=== PATIENT | female | born 1935 | race Caucasian/White ===

== ENCOUNTER → 2018-02-23 | Outpatient (CLI) | payer MEDICARE, BC ==
--- NOTE | 2018-02-25 23:03 | CT ---
EXAMINATION TYPE: CT angio abdomen DATE OF EXAM: 02/23/2018 HISTORY: upper abdominal pain and tenderness. CT DLP: 1776mGycm Automated Exposure Control for Dose Reduction was Utilized. CONTRAST: CTA scan of the abdomen is performed without oral and without and with IV Contrast, patient injected with 100mL mL of Isovue 370. Three-D reconstructed images are created on a independent workstation an d reviewed. COMPARISON: CT abdomen and pelvis October 08, 2011. FINDINGS: VASCULAR: There is [id number] calcified plaque along course of the aorta. Patent celiac axis, S MA, bilateral single renal arteries, and ADONIS without significant stenosis. There is mild to moderate calcified plaque in bilateral common iliac arteries without significant stenosis. Similar plaque exte nds into proximal internal iliac arteries. No significant plaque in the external iliac arteries. Mild calcified plaque left common femoral artery. LUNG BASES: No significant abnormality is appreciated. LIVER/GB: Cholecystectomy clips are redemonstrated. PANCREAS: Mild fat replaced atrophy at level of pancreatic head is redemonstrated. SPLEEN: No significant abnormality is seen. ADRENALS: No significant abnormality is seen. KIDNEYS: No significant abnormality is seen. BOWEL: Some diverticula are seen in visualized sigmoid colon. LYMPH NODES: No greater than 1cm abdominal lymph nodes nodes are appreciated. OSSEOUS STRUCTURES: Moderate to severe multilevel spurring of the thoracolumbar spine. Moderate to se charbel multilevel disc space narrowing with vacuum disc phenomenon at L2-L3 through the L5-S1 levels. M ultilevel facet arthropathy and disc herniations contribute to multilevel spinal canal stenosis worse L4-L5 level on axial image 51. OTHER: No significant additional abnormality is seen. IMPRESSION: No aneurysm is evident. No significant arterial stenosis identified. No new or acute find ing identified to account for patient's symptoms of upper abdominal pain and tenderness.
== END | disposition home or self-care (01) ==
LOC: RADCTMAIN 15:52
PROVIDERS: ATTEND Family Medicine
DX: R10.84 Generalized abdominal pain (principal); R10.819 Abdominal tenderness, unspecified site; Z88.2 Allergy status to sulfonamides; Z88.5 Allergy status to narcotic agent
CPT/HCPCS: 74175

== ENCOUNTER 2018-06-13 08:02 | Day surgery (SDC) | payer MEDICARE, BC ==
[2018-06-11 15:37] VITALS: BMI 34.6
[~2018-06-13 08:02] MED LIST: LACTATED RINGERS 1,000 ML IV SCH; LIDOCAINE 1% 20 ML VIAL (10MG/ML) FOR IV START INTRADERMA PRN
[2018-06-13 08:32] VITALS: TEMP 97.7
[2018-06-13] MEDS ORDERED: PROPOFOL 10 MG/ML 20 ML VIAL IV ONE (08:52)
[2018-06-13] MEDS ORDERED: LIDOCAINE 1% INJ 10MG/ML (20 ML MDV) ONE (08:52)
[2018-06-13] MEDS ORDERED: GLYCOPYRROLATE 0.2 MG/ML 2 ML VIAL ONE (08:52)
[2018-06-13 09:16] VITALS: RESP 18
[2018-06-13 09:31] VITALS: BP 100/64; PULSE 72
--- NOTE | 2018-06-13 09:35 | P.PCN ---
Date of Procedure: 06/13/18 Procedure(s) Performed: BRIEF HISTORY: Patient is a 82-year-old, pleasant, white female, scheduled for an upper endoscopy as a part of evaluation of severe epigastric burning pain for the last 6 months duration. She lost 20 pounds since onset of the symptoms. She was recently started on Prilosec 20 mg daily and symptoms are gradually improving.. PROCEDURE PERFORMED: Esophagogastroduodenoscopy with biopsy. PREOPERATIVE DIAGNOSIS: Epigastric burning pain of 6 months duration. IV sedation per anesthesia. PROCEDURE: After informed consent was obtained, the patient was brought into the endoscopy unit. IV sedation was administered by Anesthesia under continuous monitoring. Initially the Olympus GIF-140 video endoscope was inserted into the mouth. Esophagus intubated without any difficulty. It was gradually advanced into the stomach and duodenum and carefully examined. The bulb and the second part of the duodenum appeared normal. The scope at this time was withdrawn to the stomach, adequately insufflated with air, and upon careful examination, mucosa of the antrum, had mild gastritis and biopsies were done from this area. The body, cardia and the fundus appeared normal. The scope was then withdrawn into the esophagus. Small sliding Hiatal hernia noted. The GE junction was located at 39 cm from the incisors. The esophagus appeared normal. There were no erosions or ulcerations seen, biopsies were done from the distal esophagus and the patient tolerated the procedure well. IMPRESSION: 1. Small hiatal hernia. 2. Antral gastritis. RECOMMENDATIONS: The findings of this examination were discussed with the patient as well as a family. She was advised to follow with the biopsy results. She will continue with Prilosec 20 mg daily and follow antireflux measures..
== END 2018-06-13 09:57 | disposition home or self-care (01) ==
LOC: ORWHC2ENDO 08:02
PROVIDERS: ATTEND Internal Medicine Gastroenterology
DX: K29.50 Unspecified chronic gastritis without bleeding (principal); K29.60 Other gastritis without bleeding; K44.9 Diaphragmatic hernia without obstruction or gangrene; Z79.899 Other long term (current) drug therapy
CPT/HCPCS: 88305; 43239; J2001; J2704

== ENCOUNTER → 2020-07-24 | Outpatient (CLI) | payer MEDICARE, BC ==
--- NOTE | 2020-07-25 16:08 | ECHOF ---
Referral Reason:I25.84 Coronary atherosclerosis MEASUREMENTS -------- HEIGHT: 165.1 cm WEIGHT: 97.1 kg BP: RVIDd: 3.8 cm (< 3.3) IVSd: 1.3 cm (0.6 - 1.1) LVIDd: 4.1 cm (3.9 - 5.3) LVPWd: 1.5 cm (0.6 - 1.1) IVSs: 1.7 cm LVIDs: 2.8 cm LVPWs: 1.7 cm LAESV Index (A-L): 28.96 ml/m Ao Diam: 2.8 cm (2.0 - 3.7) AV Cusp: 1.4 cm (1.5 - 2.6) LA Diam: 3.8 cm (2.7 - 3.8) MV EXCURSION: 23.948 mm (> 18.000) MV EF SLOPE: 136 mm/s (70 - 150) EPSS: 1.4 cm MV E Varun: 1.01 m/s MV DecT: 179 ms MV A Varun: 1.17 m/s MV E/A Ratio: 0.87 AV maxP.67 mmHg AV meanP.05 mmHg AR PHT: 490 ms RAP: 5.00 mmHg RVSP: 30.18 mmHg FINDINGS -------- Sinus rhythm. This was a technically adequate study. The left ventricular size is normal. There is mild concentric left ventricular hypertrophy. Overa ll left ventricular systolic function is normal with, an EF between 55 - 60 %. The diastolic fillin g pattern is normal for the age of the patient 15.35. The right ventricle is mild to moderately enlarged. Normal LA size by volume 22+/-6 ml/m2. The right atrial size is normal. Interatrial and interventricular septum intact. Trace amount of aortic regurgitation. There is mild aortic stenosis present. Peak/mean gradient across the Aortic Valve is 20.67mmHg / 12.05mmHg. Mild mitral regurgitation is present. Mild tricuspid regurgitation present. There is borderline pulmonary hypertension. The right ventr icular systolic pressure, as measured by Doppler, is 30.18mmHg. There is no pulmonic regurgitation present. The aortic root size is normal. Normal inferior vena cava with normal inspiratory collapse consistent with estimated right atrial pre ssure of 5 mmHg. There is no pericardial effusion. CONCLUSIONS -------- 1. The left ventricular size is normal. 2. There is mild concentric left ventricular hypertrophy. 3. Overall left ventricular systolic function is normal with, an EF between 55 - 60 %. 4. The diastolic filling pattern is normal for the age of the patient 15.35 5. The right ventricle is mild to moderately enlarged. 6. Trace amount of aortic regurgitation. 7. There is mild aortic stenosis present. 8. Peak/mean gradient across the Aortic Valve is 20.67mmHg / 12.05mmHg. 9. Mild mitral regurgitation is present. 10. Mild tricuspid regurgitation present. 11. There is borderline pulmonary hypertension. 12. The right ventricular systolic pressure, as measured by Doppler, is 30.18mmHg. TYPEWRITER ASSEMBLER: Alejandra Stoner RDCS
== END | disposition home or self-care (01) ==
LOC: RADECHMAIN 13:38
PROVIDERS: ATTEND Internal Medicine Critical Care Medicine
DX: I27.20 Pulmonary hypertension, unspecified (principal); I08.3 Combined rheumatic disorders of mitral, aortic and tricuspid valves
CPT/HCPCS: 93306

== ENCOUNTER → 2020-09-30 | Outpatient (CLI) | payer MEDICARE, BC | END | disposition home or self-care (01) | LOC: LABWHC1 11:43 | PROVIDERS: ATTEND Surgery | DX: Z20.822 Contact with and (suspected) exposure to COVID-19 (principal) ==

== ENCOUNTER 2020-10-07 11:09 | Inpatient (IN) | payer MEDICARE, BC ==
[2020-10-01 15:04] VITALS: BMI 35.1
[~2020-10-07 11:09] MED LIST changes: +HYDROmorphone 0.5 MG/0.5 ML SYRINGE IVP PRN; -LACTATED RINGERS 1,000 ML IV SCH; -LIDOCAINE 1% 20 ML VIAL (10MG/ML) FOR IV START INTRADERMA PRN; +ONDANSETRON 4 MG/2 ML VIAL IVP ONE; +fentaNYL (PF) 50 MCG/ML 2 ML AMP IV PRN; +metroNIDAZOLE-NS PMX 500 MG in SALINE 1 100ML.BAG IVPB PRN
[2020-10-07] MEDS ORDERED: LIDOCAINE 1% (10MG/ML) FOR IV START INTRADERMA ONE (12:17)
[2020-10-07] MEDS: LACTATED RINGERS 1,000 ML IV SCH ×2 (12:17→20:54)
[2020-10-07] MEDS ORDERED: ONDANSETRON 4 MG/2 ML VIAL ONE (12:26)
[2020-10-07] MEDS ORDERED: HEPARIN SODIUM,PORCINE 5,000 UNIT/ML 1 ML VIAL SQ PRN (12:29)
[2020-10-07] MEDS ORDERED: DEXAMETHASONE SOD PHOSPHATE 4 MG/ML 1 ML VIAL IV ONE (12:30)
[2020-10-07] MEDS ORDERED: fentaNYL (PF) 50 MCG/ML 2 ML AMP ONE (12:54)
[2020-10-07] MEDS ORDERED: LIDOCAINE 1% INJ 10MG/ML (20 ML MDV) ONE (12:54)
[2020-10-07] MEDS ORDERED: SUCCINYLCHOLINE CHLORIDE 100 MG/5 ML SYR IV ONE (12:54)
[2020-10-07] MEDS ORDERED: ROCURONIUM 10 MG/ML (5 ML VIAL) IV ONE (12:54)
[2020-10-07] MEDS ORDERED: NEOSTIGMINE 1 MG/ML 10 ML VIAL ONE (12:54)
[2020-10-07] MEDS ORDERED: HYDROmorphone (PF) 1 MG/ML ONE (12:54)
[2020-10-07] MEDS ORDERED: GLYCOPYRROLATE 0.2 MG/ML 2 ML VIAL ONE (12:54)
[2020-10-07] MEDS ORDERED: PROPOFOL 10 MG/ML 20 ML VIAL IV ONE (12:54)
[2020-10-07] MEDS ORDERED: BUPIVACAINE (PF) 0.25% 30 ML VIAL SQ ONE ×3 (13:21)
[2020-10-07] MEDS ORDERED: LIDOCAINE 1%-EPI 1:100,000 20 ML VIAL SQ ONE ×2 (13:21)
[2020-10-07] MEDS ORDERED: LACTATED RINGERS 1,000 ML IV ONE ×3 (14:21→18:27)
[2020-10-07] MEDS ORDERED: NALOXONE 0.4 MG/ML 1 ML VIAL IV PRN (15:31)
[2020-10-07] MEDS ORDERED: ONDANSETRON 4 MG/2 ML VIAL IVP PRN (15:31)
[2020-10-07] MEDS ORDERED: HYDROmorphone 0.5 MG/0.5 ML SYRINGE IVP PRN (15:31)
[2020-10-07] MEDS ORDERED: ACETAMINOPHEN TAB 325 MG TAB PO PRN (15:38)
--- NOTE | 2020-10-07 15:45 | P.OP ---
Date of Procedure: 10/07/20 Preoperative Diagnosis: Colon cancer, blood loss anemia Postoperative Diagnosis: Colon cancer, blood loss anemia Procedure(s) Performed: Robotic assisted right hemicolectomy Anesthesia: JANICE Surgeon: Emerita Strickland Estimated Blood Loss (ml): 75 Pathology: other (Right colon) Condition: stable Disposition: PACU Indications for Procedure: The patient is an 84-year-old female who had had EGD and colonoscopy done due to severe iron deficiency anemia. Findings showed a large tumor in the right colon and she presents for surgery Description of Procedure: Patient's taken the operative suite where she is prepped and draped in the usual sterile manner under general endotracheal anesthetic. An optical trocar is then placed in the left midabdomen. Pneumoperitoneum was established with CO2 gas. Sites are chosen for accessory trochars and these are placed through small skin incisions. There is an obvious tumor noted in the right colon opposite the ileocecal valve. Otherwise the liver, diaphragm, large and small bowel were normal where they were seen. The robot is docked. The terminal ileum is mobilized near the right lateral peritoneal reflection. This is continued up along the paracolic gutter to the hepatic flexure. The right colon is mobilized medially. The patient is then placed in reverse Trendelenburg. The hepatic flexure and transverse colon are taken down. The omentum is dissected free off the transverse colon and reflected to the left abdomen. The terminal ileum and right colon are within brought towards the anterior abdominal wall and the mesentery was taken down with the vessel seal. The ileocolic vessels are divided with a stapling device. Dissection was carried up to the mesentery of the transverse colon. At that point there was good mobilization. Due to the large nature of the tumor, larger incision would need to made to remove the specimen, so decision was made to do an extracorporeal anastomosis. A small incision is made in the right abdomen. The anterior fascia was divided, the muscle was split. The posterior fascia and peritoneum were divided. The terminal ileum was brought up through the incision. It was divided with a NITA stapler. Was tagged with 0 Vicryl and dropped back into the abdominal cavity. The cecum was then brought up through the incision. The descending and proximal transverse colon were also brought up. Terminal ileum was brought up. The antimesenteric border of the terminal ileum was tacked to the transverse colon using 3-0 Vicryl. Small opening was made in each of the bowel and a NITA stapler was placed and fired. The enteric defect was closed with a stapler and the specimen was passed off. The anastomosis seemed to be a little small to finger palpation so it was revised. At that point there was a good anastomosis to finger palpation. Bowel was dropped back into the abdominal cavity. Gloves were changed. The posterior fascia and peritoneum were closed with 0 Vicryl. The muscle was allowed to fall back together. The anterior fascia was closed with 0 Vicryl. Trochars are removed. The skin was closed with ashish. Sterile dressings were applied. She tolerated the procedure without difficulty and was taken recovery room in satisfactory condition. According to or personnel, all counts are correct.
--- NOTE | 2020-10-07 15:58 | XR ---
EXAMINATION TYPE: XR abdomen 1V DATE OF EXAM: 10/07/2020 COMPARISON: None INDICATION: Instrument count TECHNIQUE: Single view abdomen supine view FINDINGS: Nonspecific bowel gas pattern is present. Some small bowel loops contain air within the left mid abdo men. Postsurgical change appears to be within the right mid abdomen.. Some faint linear densities lat eral to what appear to be bowel suture. Psoas margins are normal. No organomegaly is present. IMPRESSION: 1. Nonspecific abdomen. 2. No suspicious radiopaque foreign bodies identified. Correlate with the recent surgical history. So me nonspecific linear opacity may be lateral to the bowel suture material.
[2020-10-07] MEDS ORDERED: ACETAMINOPHEN IV (For NPO) 1,000 MG/100 ML VIAL IVPB ONE (16:08)
[2020-10-07] MEDS: D5-0.45% NACL WITH KCL 20MEQ/L 1,000 ML IV SCH (20:52)
[2020-10-07] MEDS: METOCLOPRAMIDE 5 MG/ML 2 ML VIAL IVP SCH (20:52)
[2020-10-07] MEDS: HEPARIN SODIUM,PORCINE 5,000 UNIT/ML 1 ML VIAL SQ SCH (20:53)
[2020-10-07] MEDS: atenoloL 25 MG TAB PO SCH (20:53)
[2020-10-08] MEDS: METOCLOPRAMIDE 5 MG/ML 2 ML VIAL IVP SCH ×5 (00:06→23:19)
[2020-10-08] MEDS: HYDROcodone/APAP 5-325MG 1 EACH TAB PO PRN ×3 (04:33→17:00)
[2020-10-08] MEDS: THYROID, PORK 30 MG TAB PO SCH (06:26)
[2020-10-08] MEDS: HEPARIN SODIUM,PORCINE 5,000 UNIT/ML 1 ML VIAL SQ SCH (08:24)
[2020-10-08] MEDS: CHOLECALCIFEROL 25 MCG (1000 IU) TABLET PO SCH (08:25)
[2020-10-08] MEDS: MAGNESIUM OXIDE 400 MG TAB PO SCH (08:25)
[2020-10-08] MEDS: ISOSORBIDE MONONITRATE ER 30 MG TAB.ER.24H PO SCH (08:25)
[2020-10-08] MEDS: FERROUS SULFATE 325 MG TAB PO SCH (08:25)
[2020-10-08] MEDS: LOSARTAN-HCTZ 50-12.5 MG 1 EACH TAB PO SCH (08:28)
[2020-10-08] MEDS: PANTOPRAZOLE 40 MG/10 ML VIAL IV SCH (08:28)
[2020-10-08] MEDS: D5-0.45% NACL WITH KCL 20MEQ/L 1,000 ML IV SCH ×2 (08:28→20:05)
[2020-10-08] MEDS: atenoloL 25 MG TAB PO SCH ×2 (08:28→20:05)
[2020-10-08] MEDS: HEPARIN SODIUM,PORCINE/PF 5,000 UNIT/0.5 ML SYRINGE SQ SCH ×2 (08:30→20:05)
[2020-10-08] MEDS ORDERED: NON FORMULARY DRUG (Vitamin B Complex [Vitamin B Complex] 1 EACH Capsule) PO SCH (09:00)
[2020-10-08] MEDS ORDERED: POTASSIUM 100 MG PO SCH (09:00)
--- NOTE | 2020-10-08 09:46 | P.PN ---
Subjective Progress Note Date: 10/08/20 Principal diagnosis: S/P right hemicolectomy for colon cancer The patient is postop day 1 from a robotic assisted right hemicolectomy. She is having some expected incisional pain. Denies any nausea, vomiting or heartburn. Ate a small amount of breakfast. Objective - Vital Signs Vital signs: Vital Signs Temp 98.1 F 10/08/20 04:48 Pulse 78 10/08/20 04:48 Resp 16 10/08/20 04:48 BP 112/53 10/08/20 04:48 Pulse Ox 98 10/08/20 04:48 Intake & Output 10/07/20 10/08/20 10/08/20 18:59 06:59 18:59 Intake Total 2300 Output Total 135 Balance 2165 Weight 95.7 kg Intake: IV 2300 Output: Urine 60 Estimated Blood Loss 75 Other: Voiding Method Indwelling Catheter - Constitutional General appearance: Present: cooperative - Respiratory Respiratory: bilateral: CTA - Cardiovascular Rhythm: regular Abnormal Heart Sounds: Present: systolic murmur (2/) - Gastrointestinal General gastrointestinal: Present: decreased bowel sounds, soft Localized gastrointestinal: surgical scar: diffuse (dressings intact, clean and dry) Assessment and Plan (1) Colon cancer Current Visit: Yes Status: Acute Code(s): C18.9 - MALIGNANT NEOPLASM OF COLON, UNSPECIFIED SNOMED Code(s): 003891450 Plan: The patient clinically looks well. We will increase her activity and diet as tolerated. Use the incentive spirometry. She has DVT and ulcer prophylaxis. Internal medicine is consulted regarding her medical issues. Her blood pressure medication was held this morning. Progressing slowly
[2020-10-08 11:15] LABS: Basophils # (A) 0.03 X 10*3/uL (0.00-0.10); Basophils % (A) 0.2 %; Eosinophils # (A) 0.01 X 10*3/uL (0.04-0.35); Eosinophils % (A) 0.1 %; HCT 29.2 % (37.2-46.3); Lymphocytes # (A) 1.33 X 10*3/uL (0.90-5.00); Lymphocytes % (A) 10.9 %; MCH 26.9 pg (27.0-32.0); MCHC 30.8 g/dL (32.0-37.0); MCV 87.4 fL (80.0-97.0); Mean Platelet Volume 10.8 fL (9.5-12.2); Monocytes # (A) 0.71 X 10*3/uL (0.20-1.00); Monocytes % (A) 5.8 %; Neutrophils # (A) 10.07 X 10*3/uL (1.80-7.70); Neutrophils % (A) 82.5 %; Platelet Count 312 X 10*3/uL (140-440); RBC 3.34 X 10*6/uL (4.10-5.20); RDW 19.2 % (11.5-14.5); WBC 12.21 X 10*3/uL (4.50-10.00)
[2020-10-08 12:46] LABS: African American GFR (CKD) 33.9 (60.0-200.0); Anion Gap 9.6 mmol/L (4.00-12.00); BUN/Creat Ratio 14.38 Ratio (12.00-20.00); Calcium 8.9 mg/dL (8.7-10.3); Carbon Dioxide 24.4 mmol/L (21.6-31.8); Non-African American GFR(CKD) 29.3 (60.0-200.0); Potassium 4.4 mmol/L (3.5-5.5)
--- NOTE | 2020-10-08 13:08 | P.CONS ---
History of Present Illness - Reason for Consult Consult date: 10/08/20 Medical management - History of Present Illness HISTORY OF PRESENT ILLNESS This is an 84-year-old female patient of Dr. Barr and Dr. Scotty Costa with past medical history of hypertension hypertensive cardiovascular disease, hyperlipidemia, gastroesophageal reflux disease, hiatal hernia, hypothyroidism, chronic kidney disease, anemia of chronic kidney disease and colon cancer, degenerative disc disease of the cervical spine, granulomatous disease of the lungs. Patient has been brought in the hospital under the care of Dr. Strickland status post lap scopic robotic assisted right hemicolectomy. Patient is postop day #1. She states she is having abdominal pain. She is not passing gas. She denies nausea. She feels like she needs to urinate. She denies chest pain, no shortness of breath. She states she has had chest pain in the past that comes and goes and is treated with medications. She denies any dizziness or lightheadedness. Patient has been afebrile, heart rate 78, blood pressure 112/53, pulse ox 98% on room air. Blood work reveals the PVC 12.2, hemoglobin 9, platelet count 312. Electrolytes normal. BUN 23 and creatinine 1.6. Patient is on a low-fat and low fiber diet. REVIEW OF SYSTEMS Constitutional: No fever, no chills, no night sweats. No weight change. No weakness, fatigue or lethargy. No daytime sleepiness. EENT: No headache. No blurred vision or double vision, no loss of vision. No loss of Hearing, no ringing in the ears, no dizziness. No nasal drainage or congestion. No epistaxis. No sore throat. Lungs: No shortness of breath, cough, no sputum production. No wheezing. Cardiovascular: No chest pain, no lower extremity edema. No palpitations. No paroxysmal nocturnal dyspnea. No orthopnea. No lightheadedness or dizziness. No syncopal episodes. Abdominal: Reports abdominal pain. No nausea, vomiting. No diarrhea. No constipation. No bloody or tarry stools.. No loss of appetite. Genitourinary: No dysuria, increased frequency, urgency. No urinary retention. Musculoskeletal: No myalgias. No muscle weakness, no gait dysfunction, no frequent falls. No back pain. No neck pain. Integumentary: No wounds, no lesions. No rash or pruritus. No unusual bruising. No change in hair or nails. Neurologic: No aphasia. No facial droop. No change in mentation. No head injury. No headache. No paralysis. No paresthesia. Psychiatric: No depression. No anxiety. No mood swings. Endocrine: No abnormal blood sugars. No weight change. No excessive sweating or thirst. No cold intolerance. SOCIAL HISTORY Patient was a smoker of one pack per day for 19 years and quit in 1972. No alcohol use, illicit drug use. FAMILY HISTORY Mother recently in her 90s with no major medical problems. Father at age 36 from electrical accident at meal her breasts. Patient has 2 brothers and one has history of lung cancer and the second has no major medical problems. Patient has one sister with history of stroke. Patient has 2 sons and one was diagnosed with melanoma 39 years ago and stable. Second son has no major medical problems. PHYSICAL EXAMINATION Gen: This is an 84-year-old female. Patient is sitting up in recliner and appears to be comfortable and in no acute distress. HEENT: Head is atraumatic, normocephalic. Pupils equal, round. Sclerae is anicteric. NECK: Supple. No JVD. No lymphadenopathy. No thyromegaly. LUNGS: Clear to auscultation. No wheezes or rhonchi. No intercostal retractions. HEART: Regular rate and rhythm. Systolic murmur. ABDOMEN: Soft. Bowel sounds are present. No masses. No tenderness. Dressing in place to the right lower quadrant. No breakthrough bleeding or drainage. EXTREMITIES: No pedal edema. No calf tenderness. Dorsalis pedis +2 bilaterally. NEUROLOGICAL: Patient is awake, alert and oriented x3. Cranial nerves 2 through 12 are grossly intact. ASSESSMENT AND PLAN 1. Colon cancer status post robotic-assisted right, hemicolectomy, postoperative day #1. Patient has had no postop Occasions. Continue current pain management, continue diet per surgery. 2. Hypertension, hypertensive cardiovascular disease. Continue atenolol 25 mg twice daily, losartan hydrochlorothiazide daily and parameters added, continue Imdur 30 mg daily. 3. Hyperlipidemia. 4. Gastroesophageal reflux disease. Continue Protonix 40 mg daily. 5. Chronic kidney disease stage 3/4. Avoid nephrotoxic agents, continue to monitor. 6. Degenerative disc disease of the cervical spine, stable. 7. Granulomatous disease of the lungs followed by tiffanie Messer 8. Hypothyroidism. Continue [place] Thyroid 120 mg daily 9. Anemia of chronic kidney disease and colon cancer. Continue ferrous sulfate 325 mg daily. 10. DVT prophylaxis. Heparin subcu. DISCHARGE PLAN home. Impression and plan of care have been directed as dictated by the signing physician. Tiana Sears nurse practitioner acting as scribe for signing physician. Past Medical History Past Medical History: Cancer, Chest Pain / Angina, GERD/Reflux, Hyperlipidemia, Hypertension, Musculoskeletal Disorder, Osteoarthritis (OA), Respiratory Disorder, Thyroid Disorder Additional Past Medical History / Comment(s): States "spots on lungs" which causes SOB with activity., thyroid nodules, mild diverticulitis, varicose veins, generalized arthiritis, states blood in stool and anemia- colon cancer. History of Any Multi-Drug Resistant Organisms: None Reported Past Surgical History: Appendectomy, Breast Surgery, Cholecystectomy, Heart Catheterization, Hysterectomy, Joint Replacement, Tonsillectomy Additional Past Surgical History / Comment(s): kayleen total knees, thyroidectomy, surgeries for detached retinas, cataract with L eye, D&C, left breast biopsy, laser surgery rt eye Past Anesthesia/Blood Transfusion Reactions: No Reported Reaction Additional Past Anesthesia/Blood Transfusion Reaction / Comm: Pt has never received blood. Past Psychological History: Depression Additional Psychological History / Comment(s): Pt resides alone. She is independent. She drives. Smoking Status: Former smoker Past Alcohol Use History: None Reported Additional Past Alcohol Use History / Comment(s): started smoking age 18. She quit smoking about 1972, Pt smoked 1 ppd Past Drug Use History: None Reported - Past Family History Son(s) Family Medical History: Cancer Additional Family Medical History / Comment(s): melanoma Father Family Medical History: No Reported History Additional Family Medical History / Comment(s): . Mother Family Medical History: No Reported History Additional Family Medical History / Comment(s): Mother is alive and healthy at 95yrs old. Brother(s) Family Medical History: Cancer Sister(s) Family Medical History: CVA/TIA Medications and Allergies Home Medications Medication Instructions Recorded Confirmed Type Losartan/Hydrochlorothiazide 1 tab PO DAILY 07/08/15 10/07/20 History [Hyzaar 100-25 Tablet] Thyroid,Pork [[place] Thyroid] 120 mg PO DAILY 07/08/15 10/07/20 History atenoloL [Atenolol] 25 mg PO BID 07/08/15 10/07/20 History Acetaminophen [Tylenol Arthritis] 1,300 mg PO DIRECTED PRN 10/01/20 10/07/20 History Cholecalciferol [Vitamin D3 (25 50 mcg PO DAILY 10/01/20 10/07/20 History Mcg = 1000 Iu)] Iron (Unknown Dose) 1 tab PO BID 10/01/20 10/07/20 History Isosorbide Mononitrate ER [Imdur] 30 mg PO DAILY 10/01/20 10/07/20 History Magnesium 400 mg PO DAILY 10/01/20 10/07/20 History Pantoprazole Sodium 30 mg PO DAILY 10/01/20 10/07/20 History Potassium 100 Mg 1 tab PO DAILY 10/01/20 10/07/20 History Vitamin B Complex 1 each PO DAILY 10/01/20 10/07/20 History Allergies Allergy/AdvReac Type Severity Reaction Status Date / Time sulfamethoxazole Allergy Rash/Hives Verified 10/07/20 11:59 [From Bactrim] trimethoprim [From Bactrim] Allergy Rash/Hives Verified 10/07/20 11:59 codeine AdvReac Chest Pain Verified 10/07/20 11:59 tuberculin skin test Allergy Swelling Uncoded 10/07/20 11:59 Physical Exam Vitals: Vital Signs Temp Pulse Pulse Resp BP Pulse Ox 10/08/20 04:48 98.1 F 78 16 112/53 98 10/07/20 20:07 95 10/07/20 19:55 98.0 F 56 L 16 150/68 95 10/07/20 18:30 58 L 16 140/63 100 10/07/20 18:00 57 L 16 153/73 100 10/07/20 17:50 144/65 10/07/20 17:45 52 L 16 141/101 100 10/07/20 17:15 60 16 122/58 99 10/07/20 16:48 63 14 136/63 100 10/07/20 16:33 62 16 153/69 100 10/07/20 16:18 60 14 163/70 100 10/07/20 16:03 65 15 167/71 100 10/07/20 15:48 98.0 F 79 12 185/72 100 10/07/20 11:57 98.2 F 76 16 131/59 97 Intake and Output 10/07/20 10/08/20 10/08/20 22:59 06:59 14:59 Intake Total 350 Output Total 135 Balance 215 Intake: IV 350 Output: Urine 60 Estimated Blood Loss 75 Other: Voiding Method Indwelling Catheter Results CBC & Chem 7: 10/08/20 06:39 10/08/20 06:39
[2020-10-09] MEDS: METOCLOPRAMIDE 5 MG/ML 2 ML VIAL IVP SCH ×3 (05:57→17:26)
[2020-10-09] MEDS: THYROID, PORK 30 MG TAB PO SCH (05:57)
[2020-10-09] MEDS: HYDROcodone/APAP 5-325MG 1 EACH TAB PO PRN ×2 (05:59→12:34)
[2020-10-09] MEDS: ISOSORBIDE MONONITRATE ER 30 MG TAB.ER.24H PO SCH (08:08)
[2020-10-09] MEDS: MAGNESIUM OXIDE 400 MG TAB PO SCH (08:08)
[2020-10-09] MEDS: HEPARIN SODIUM,PORCINE/PF 5,000 UNIT/0.5 ML SYRINGE SQ SCH ×2 (08:08→21:11)
[2020-10-09] MEDS: atenoloL 25 MG TAB PO SCH ×2 (08:08→21:11)
[2020-10-09] MEDS: FERROUS SULFATE 325 MG TAB PO SCH (08:08)
[2020-10-09] MEDS: LOSARTAN-HCTZ 50-12.5 MG 1 EACH TAB PO SCH (08:08)
[2020-10-09] MEDS: CHOLECALCIFEROL 25 MCG (1000 IU) TABLET PO SCH (08:08)
[2020-10-09] MEDS: PANTOPRAZOLE 40 MG/10 ML VIAL IV SCH (08:09)
--- NOTE | 2020-10-09 11:27 | P.PN ---
Subjective Progress Note Date: 10/09/20 HISTORY OF PRESENT ILLNESS This is an 84-year-old female patient of Dr. Barr and Dr. Scotty Costa with past medical history of hypertension hypertensive cardiovascular disease, hyperlipidemia, gastroesophageal reflux disease, hiatal hernia, hypothyroidism, chronic kidney disease, anemia of chronic kidney disease and colon cancer, degenerative disc disease of the cervical spine, granulomatous disease of the lungs. Patient has been brought in the hospital under the care of Dr. Strickland status post lap scopic robotic assisted right hemicolectomy. Patient is postop day #1. She states she is having abdominal pain. She is not passing gas. She denies nausea. She feels like she needs to urinate. She denies chest pain, no shortness of breath. She states she has had chest pain in the past that comes and goes and is treated with medications. She denies any dizziness or lightheadedness. Patient has been afebrile, heart rate 78, blood pressure 112/53, pulse ox 98% on room air. Blood work reveals the PVC 12.2, hemoglobin 9, platelet count 312. Electrolytes normal. BUN 23 and creatinine 1.6. Patient is on a low-fat and low fiber diet. /: Patient has been afebrile, heart rate 63, blood pressure 112/69, pulse ox 97% on room air. Patient is having minimal incisional pain. She is utilizing incentive spirometry at 1000 ML's. Patient is eating 25-75% of her meals. No nausea or vomiting. She does complain of some abdominal pain related to the surgery. She states she feels like there is gas moving around. She has not passed flatus. She denies having any chest pain or shortness of breath. Anticipate probable discharge tomorrow. REVIEW OF SYSTEMS Constitutional: No fever, no chills, no night sweats. No weight change. No weakness, fatigue or lethargy. No daytime sleepiness. EENT: No headache. No blurred vision or double vision, no loss of vision. No loss of Hearing, no ringing in the ears, no dizziness. No nasal drainage or congestion. No epistaxis. No sore throat. Lungs: No shortness of breath, cough, no sputum production. No wheezing. Cardiovascular: No chest pain, no lower extremity edema. No palpitations. No paroxysmal nocturnal dyspnea. No orthopnea. No lightheadedness or dizziness. No syncopal episodes. Abdominal: Reports abdominal discomfort. No nausea, vomiting. No diarrhea. Reports constipation. No bloody or tarry stools.. No loss of appetite. Genitourinary: No dysuria, increased frequency, urgency. No urinary retention. Musculoskeletal: No myalgias. No muscle weakness, no gait dysfunction, no frequent falls. No back pain. No neck pain. Integumentary: No wounds, no lesions. No rash or pruritus. No unusual bruising. No change in hair or nails. Neurologic: No aphasia. No facial droop. No change in mentation. No head injury. No headache. No paralysis. No paresthesia. Psychiatric: No depression. No anxiety. No mood swings. Endocrine: No abnormal blood sugars. No weight change. No excessive sweating or thirst. No cold intolerance. PHYSICAL EXAMINATION Gen: This is an 84-year-old female. Patient is sitting up in recliner and appears to be comfortable and in no acute distress. HEENT: Head is atraumatic, normocephalic. Pupils equal, round. Sclerae is anicteric. NECK: Supple. No JVD. No lymphadenopathy. No thyromegaly. LUNGS: Clear to auscultation. No wheezes or rhonchi. No intercostal retractions. HEART: Regular rate and rhythm. Systolic murmur. ABDOMEN: Soft. Bowel sounds are present. No masses. No tenderness. Dressing in place to the right lower quadrant. No breakthrough bleeding or drainage. EXTREMITIES: No pedal edema. No calf tenderness. Dorsalis pedis +2 bilaterally. NEUROLOGICAL: Patient is awake, alert and oriented x3. Cranial nerves 2 through 12 are grossly intact. ASSESSMENT AND PLAN 1. Colon cancer status post robotic-assisted right, hemicolectomy, postoperativ e day #1. Patient has had no postop Occasions. Continue current pain management, continue diet per surgery. 2. Hypertension, hypertensive cardiovascular disease. Continue atenolol 25 mg twice daily, losartan hydrochlorothiazide daily and parameters added, continue Imdur 30 mg daily. 3. Hyperlipidemia. 4. Gastroesophageal reflux disease. Continue Protonix 40 mg daily. 5. Chronic kidney disease stage 3/4. Avoid nephrotoxic agents, continue to monitor. 6. Degenerative disc disease of the cervical spine, stable. 7. Granulomatous disease of the lungs followed by Dr. Costa, tiffanie 8. Hypothyroidism. Continue Gamaliel Thyroid 120 mg daily 9. Anemia of chronic kidney disease and colon cancer. Continue ferrous sulfate 325 mg daily. 10. DVT prophylaxis. Heparin subcu. DISCHARGE PLAN Home with [facility] most likely on Monday. Impression and plan of care have been directed as dictated by the signing physician. Tiana Sears nurse practitioner acting as scribe for signing physician. Objective - Vital Signs Vital signs: Vital Signs Temp 97.9 F 10/09/20 04:39 Pulse 63 10/09/20 04:39 Resp 18 10/09/20 04:39 BP 112/69 10/09/20 04:39 Pulse Ox 97 10/09/20 04:39 Intake & Output 10/08/20 10/09/20 10/09/20 18:59 06:59 18:59 Intake Total 600 240 Output Total 1000 Balance -400 240 Intake: IV 600 D5-0.45% NaCl with KCl 600 20Meq/l 1,000 ml @ 75 mls /hr IV .[id number] IRAIS Rx#: [id number] Oral 240 Output: Urine 1000 Uretheral (Tellez) 450 Other: Voiding Method Toilet # Voids 4 2 - Labs CBC & Chem 7: 10/08/20 06:39 10/08/20 06:39 Labs: Abnormal Lab Results - Last 24 Hours (Table) 10/08/20 10/08/20 Range/Units 06:39 06:39 WBC 12.21 H (4.50-10.00) X 10*3/uL RBC 3.34 L (4.10-5.20) X 10*6/uL Hgb 9.0 L (12.0-15.0) g/dL Hct 29.2 L (37.2-46.3) % MCH 26.9 L (27.0-32.0) pg MCHC 30.8 L (32.0-37.0) g/dL RDW 19.2 H (11.5-14.5) % Immature Gran # 0.06 H (0.00-0.04) X 10*3/uL Neutrophils # 10.07 H (1.80-7.70) X 10*3/uL Eosinophils # 0.01 L (0.04-0.35) X 10*3/uL Creatinine 1.6 H (0.6-1.5) mg/dL Est GFR (CKD-EPI)AfAm 33.9 L (60.0-200.0) Est GFR (CKD-EPI)NonAf 29.3 L (60.0-200.0) Glucose 136 H (70-110) mg/dL
--- NOTE | 2020-10-09 12:18 | P.PN ---
Subjective Progress Note Date: 10/09/20 Principal diagnosis: S/P right hemicolectomy for colon cancer The patient is seen on rounds. She's feeling better today. Pain is improved. She said she had a large bowel movement (blow out) after breakfast and is feeling much better. No nausea or vomiting. She is 8 about half of for breakfast. Taking pain pills. His ambulating in the room. Urinating quite a bit more than usual. Objective - Vital Signs Vital signs: Vital Signs Temp 97.9 F 10/09/20 04:39 Pulse 63 10/09/20 04:39 Resp 18 10/09/20 04:39 BP 112/69 10/09/20 04:39 Pulse Ox 97 10/09/20 04:39 Intake & Output 10/08/20 10/09/20 10/09/20 18:59 06:59 18:59 Intake Total 600 240 Output Total 1000 Balance -400 240 Intake: IV 600 D5-0.45% NaCl with KCl 600 20Meq/l 1,000 ml @ 75 mls /hr IV .[id number] IRAIS Rx#: [id number] Oral 240 Output: Urine 1000 Uretheral (Tellez) 450 Other: Voiding Method Toilet # Voids 4 2 - Constitutional General appearance: Present: cooperative, no acute distress - Respiratory Respiratory: bilateral: CTA - Cardiovascular Rhythm: regular - Gastrointestinal General gastrointestinal: Present: normal bowel sounds, soft Localized gastrointestinal: surgical scar: diffuse (Dressings are intact clean and dry) - Labs CBC & Chem 7: 10/08/20 06:39 10/08/20 06:39 Labs: Abnormal Lab Results - Last 24 Hours (Table) 10/08/20 Range/Units 06:39 Creatinine 1.6 H (0.6-1.5) mg/dL Est GFR (CKD-EPI)AfAm 33.9 L (60.0-200.0) Est GFR (CKD-EPI)NonAf 29.3 L (60.0-200.0) Glucose 136 H (70-110) mg/dL Assessment and Plan (1) Colon cancer Current Visit: Yes Status: Acute Code(s): C18.9 - MALIGNANT NEOPLASM OF COLON, UNSPECIFIED SNOMED Code(s): 902242902 Plan: Patient's IV will be converted to a saline lock. Increase activity. Likely be ready for discharge tomorrow. Questions were encouraged and answered.
[2020-10-09] MEDS: D5-0.45% NACL WITH KCL 20MEQ/L 1,000 ML IV SCH (17:17)
[2020-10-09 20:58] VITALS: RESP 16
[2020-10-10] MEDS: METOCLOPRAMIDE 5 MG/ML 2 ML VIAL IVP SCH ×3 (00:40→09:35)
[2020-10-10 04:36] VITALS: BP 146/75; PULSE 65; TEMP 98.1
--- NOTE | 2020-10-10 09:08 | P.DS ---
Providers Date of admission: 10/07/20 11:09 Expected date of discharge: 10/10/20 Attending physician: Emerita Strickland Consults: 10/07/20 15:31 Consult Physician Routine Consulting Provider: Sudeep Higgins Consult Reason/Comments: medical management Do you want consulting provider notified?: Yes Primary care physician: Ariana Barr - Discharge Diagnosis(es) (1) Colon cancer Current Visit: Yes Status: Acute Hospital Course: The patient is an 84-year-old female who was diagnosed with severe blood loss anemia. Colonoscopy showed a large tumor in the right colon. CT was negative for metastatic disease. She presented for surgery. The patient was taken to the OR where she underwent a robotic assisted right hemicolectomy. Postoperatively she did well. She was given DVT and ulcer prophylaxis. She was quickly increased on her diet and activity. By October 10 she was tolerating a diet, pain was controlled with pain pills, stooling, was anxious to go home. Procedures: Right hemicolectomy Patient Condition at Discharge: Good Plan - Discharge Summary Discharge Rx Participant: Yes New Discharge Prescriptions: New HYDROcodone/APAP 5-325MG [Lavina 5-325] 1 - 2 tab PO Q4H PRN #20 tab PRN Reason: Pain No Action Thyroid,Pork [[place] Thyroid] 120 mg PO DAILY Losartan/Hydrochlorothiazide [Hyzaar 100-25 Tablet] 1 tab PO DAILY atenoloL [Atenolol] 25 mg PO BID Pantoprazole Sodium 30 mg PO DAILY Isosorbide Mononitrate ER [Imdur] 30 mg PO DAILY Cholecalciferol [Vitamin D3 (25 Mcg = 1000 Iu)] 50 mcg PO DAILY Vitamin B Complex 1 each PO DAILY Magnesium 400 mg PO DAILY Iron (Unknown Dose) 1 tab PO BID Potassium 100 Mg 1 tab PO DAILY Acetaminophen [Tylenol Arthritis] 1,300 mg PO DIRECTED PRN PRN Reason: Pain Discharge Medication List Losartan/Hydrochlorothiazide [Hyzaar 100-25 Tablet] 1 tab PO DAILY 07/08/15 [History] Thyroid,Pork [[place] Thyroid] 120 mg PO DAILY 07/08/15 [History] atenoloL [Atenolol] 25 mg PO BID 07/08/15 [History] Acetaminophen [Tylenol Arthritis] 1,300 mg PO DIRECTED PRN 10/01/20 [History] Cholecalciferol [Vitamin D3 (25 Mcg = 1000 Iu)] 50 mcg PO DAILY 10/01/20 [History] Iron (Unknown Dose) 1 tab PO BID 10/01/20 [History] Isosorbide Mononitrate ER [Imdur] 30 mg PO DAILY 10/01/20 [History] Magnesium 400 mg PO DAILY 10/01/20 [History] Pantoprazole Sodium 30 mg PO DAILY 10/01/20 [History] Potassium 100 Mg 1 tab PO DAILY 10/01/20 [History] Vitamin B Complex 1 each PO DAILY 10/01/20 [History] HYDROcodone/APAP 5-325MG [Lavina 5-325] 1 - 2 tab PO Q4H PRN #20 tab 10/10/20 [Rx] Follow up Appointment(s)/Referral(s): [facility], [NON-STAFF] - 1-2 Days Patient Instructions/Handouts: Low Fiber Diet (DC) Activity/Diet/Wound Care/Special Instructions: Contact CM for indigent funds You may shower. Take off the dressing on the right abdomen next Monday. You may take Tylenol or Motrin instead of the pain pills. Low fiber diet for 2 weeks. Call if questions or concerns Discharge Disposition: HOME SELF-CARE
[2020-10-10] MEDS: THYROID, PORK 30 MG TAB PO SCH (09:34)
[2020-10-10] MEDS: CHOLECALCIFEROL 25 MCG (1000 IU) TABLET PO SCH (09:34)
[2020-10-10] MEDS: FERROUS SULFATE 325 MG TAB PO SCH (09:34)
[2020-10-10] MEDS: atenoloL 25 MG TAB PO SCH (09:34)
[2020-10-10] MEDS: LOSARTAN-HCTZ 50-12.5 MG 1 EACH TAB PO SCH (09:35)
[2020-10-10] MEDS: HEPARIN SODIUM,PORCINE/PF 5,000 UNIT/0.5 ML SYRINGE SQ SCH (09:35)
[2020-10-10] MEDS: ISOSORBIDE MONONITRATE ER 30 MG TAB.ER.24H PO SCH (09:35)
[2020-10-10] MEDS: MAGNESIUM OXIDE 400 MG TAB PO SCH (09:35)
[2020-10-10] MEDS: PANTOPRAZOLE 40 MG/10 ML VIAL IV SCH (09:35)
== END 2020-10-10 12:55 | disposition home or self-care (01) | DRG 331 ==
LOC: 2ORMAIN 11:09 → 5NMEDONC 18:06
PROVIDERS: ADMIT Surgery; ATTEND Surgery
PROC: 8E0W0CZ Robotic Assisted Procedure of Trunk Region, Open Approach (ICD-10-PCS; 2020-10-07)
PROC: 0DTF0ZZ Resection of Right Large Intestine, Open Approach (ICD-10-PCS; principal; 2020-10-07 13:15)
DX: C18.9 Malignant neoplasm of colon, unspecified (principal); D50.0 Iron deficiency anemia secondary to blood loss (chronic); E78.5 Hyperlipidemia, unspecified; K21.9 Gastro-esophageal reflux disease without esophagitis; E89.0 Postprocedural hypothyroidism; D63.1 Anemia in chronic kidney disease; M50.30 Other cervical disc degeneration, unspecified cervical region; Z87.891 Personal history of nicotine dependence; Z20.828 Contact with and (suspected) exposure to other viral communicable diseases; Z90.710 Acquired absence of both cervix and uterus; Z80.8 Family history of malignant neoplasm of other organs or systems; I13.10 Hypertensive heart and chronic kidney disease without heart failure, with stage 1 through stage 4 chronic kidney disease, or unspecified chronic kidney disease; J84.10 Pulmonary fibrosis, unspecified; N18.30 Chronic kidney disease, stage 3 unspecified
CPT/HCPCS: 74018; 80048; 85025; 86850; 86900; 86901; 87635; 94760

== ENCOUNTER 2021-02-03 07:48 | Day surgery (SDC) | payer MEDICARE, BC ==
[2021-02-01 12:07] VITALS: BMI 35.9
[~2021-02-03 07:48] MED LIST changes: -HYDROmorphone 0.5 MG/0.5 ML SYRINGE IVP PRN; +LACTATED RINGERS 1,000 ML IV SCH; +LIDOCAINE 1% (10MG/ML) FOR IV START INTRADERMA PRN; +MOXIFLOXACIN HCL 0.5% DROPS 3 ML BTL OP PRN; -ONDANSETRON 4 MG/2 ML VIAL IVP ONE; +TETRACAINE 0.5% OPHTH (PF) DROPS 4 ML BTL OP PRN; +TIMOLOL 0.5% OPHTH DROPS 5 ML BTL OP PRN; -fentaNYL (PF) 50 MCG/ML 2 ML AMP IV PRN; -metroNIDAZOLE-NS PMX 500 MG in SALINE 1 100ML.BAG IVPB PRN
[2021-02-03] MEDS: PHENYLEPHRINE 2.5% OPHTH DRP 2ML OP PRN ×3 (08:03→08:20)
[2021-02-03] MEDS: CYCLOPENTOLATE 1% OPHTH SOLN 2 ML BTL OP PRN ×3 (08:05→08:14)
[2021-02-03 08:40] VITALS: TEMP 97
[2021-02-03] MEDS ORDERED: MIDAZOLAM 2 MG/2 ML VIAL ONE (08:45)
[2021-02-03] MEDS ORDERED: fentaNYL (PF) 50 MCG/ML 2 ML AMP ONE (08:45)
[2021-02-03] MEDS ORDERED: HYALURONATE SODIUM INTRAOCULAR 1 EACH SYRINGE (12MG/ML) INTRAOCULA ONE (09:02)
[2021-02-03] MEDS ORDERED: BALANCED SALT IRRIG SOLN COMB2 15 ML IRRIG.SOLN INTRAOCULA ONE (09:02)
[2021-02-03] MEDS ORDERED: LIDOCAINE 1% (PF) 10MG/ML VIAL SQ ONE (09:03)
[2021-02-03] MEDS ORDERED: EPINEPHrine (PF) 0.3 ML in BALANCED SALT IRRIG SOLN COMB2 500 ML IRRIGATION ONE (09:04)
--- NOTE | 2021-02-03 09:17 | P.OP ---
Date of Procedure: 02/03/21 Preoperative Diagnosis: NS & CS & PSC Postoperative Diagnosis: same Procedure(s) Performed: PIOL, OD Implants: MX60E 20.00 Anesthesia: MAC Surgeon: Gael Sweeney Pathology: none sent Condition: stable Disposition: same day Indications for Procedure: blurry vision Operative Findings: no complications
[2021-02-03 09:23] VITALS: RESP 16
[2021-02-03 09:45] VITALS: BP 144/68; PULSE 50
--- NOTE | 2021-02-04 09:35 | OP ---
OPERATIVE REPORT DATE OF SERVICE: February 03, 2021 PROCEDURE: Phacoemulsification of cataract and intraocular lens implant of the right eye. PREOPERATIVE DIAGNOSES: Nuclear sclerosis cortical sclerosis, posterior subcapsular cataract. POSTOPERATIVE DIAGNOSES: Nuclear sclerosis cortical sclerosis, posterior subcapsular cataract OPERATION: Clear cornea phacoemulsification of cataract right OD eye. ESTIMATED BLOOD LOSS: Zero. SPECIMEN TAKEN: None. NARRATIVE: After obtaining the appropriate consent, the patient was brought to the Operating Room where the patient was placed under cardiac monitoring and prepped and draped in the usual sterile manner. At the 11 o'clock position a 15 degree super sharp blade was used to create a paracentesis followed by instillation of 1% Xylocaine MPF 50:50 mix with BSS into the anterior chamber. This was followed by Amvisc to stabilize the anterior chamber. At the 9 o'clock position a self-sealing corneal flap incision was created using 2.8 mm lucy keratome. A cystotome was used to initiate a continuous tear capsulorrhexis which was completed with the Utrata forceps. A Binkhorst cannula was used to hydrodissect the lens nucleus followed by hydrodelineation. Phacoemulsification of the lens was performed utilizing phacochop in 18.31 Seconds at 14% power. The remaining cortical material was removed using the irrigation aspiration mode followed by additional 1% Xylocaine MPF into the anterior chamber followed by viscoelastic to stabilize the capsular bag. A [employer] MX60E 20.0 diopter posterior chamber lens was placed into the capsular bag without difficulty. The remaining viscoelastic material was removed from the anterior chamber with the irrigation/aspiration. Balanced salt solution was used to normalize the intraocular pressure. The incision was checked for watertight integrity. The patient then received two drops of 0.5% timolol followed by two drops Vigamox, was lightly patched and shielded in the usual manner. There were no complications from the procedure. The patient tolerated the procedure well and was returned to recovery in good condition. MMODL / IJN: [id number] /
== END 2021-02-03 10:12 | disposition home or self-care (01) ==
LOC: OR 07:48
PROVIDERS: ATTEND Ophthalmology
DX: H25.11 Age-related nuclear cataract, right eye (principal); H25.011 Cortical age-related cataract, right eye
CPT/HCPCS: 68850; C1780; J2250; J0171; J3010; J2001

== ENCOUNTER 2022-09-27 10:08 | Emergency (ER) | payer MEDICARE, BC ==
[2022-09-27 10:14] VITALS: RESP 16
[2022-09-27] MEDS ORDERED: KETOROLAC 15 MG/ML 1 ML VIAL IM STA (10:21)
[2022-09-27] MEDS ORDERED: methylPREDNISolone SOD SUCCI 125 MG/2 ML VIAL IM ONE (10:21)
[2022-09-27] MEDS ORDERED: LIDOCAINE 5% PATCH TOPICAL STA (10:22)
--- NOTE | 2022-09-27 10:29 | ED ---
Back Pain [facility] - General Chief Complaint: Back Pain/Injury Stated Complaint: back pain Time Seen by Provider: 09/27/22 10:15 Source: patient Limitations: no limitations - History of Present Illness Initial Comments: Patient is an 86-year-old female who presents to the emergency department for back pain. Started a week and half ago. Patient denies injury and recent falls. Patient woke up with pain is worsened with movement of her spine. Pain is in the right lower back which radiates down the front of the right thigh. She denies numbness and tingling. No saddle anesthesia, weakness, loss of bowel or bladder function. Patient took [place], Excedrin, and aspirin with little relief. She denies fever, chills, abdominal pain, nausea, vomiting, burning with urination, blood in the urine. - Related Data Home Medications Medication Instructions Recorded Confirmed RX: Losartan/Hydrochlorothiazide 1 tab PO DAILY 07/08/15 09/27/22 [Hyzaar 100-25 Tablet] RX: atenoloL 25 mg PO BID 07/08/15 09/27/22 Isosorbide Mononitrate ER [Imdur] 30 mg PO DAILY 10/01/20 09/27/22 Pantoprazole [Protonix] 40 mg PO DAILY 02/01/21 09/27/22 Levothyroxine Sodium [Synthroid] 125 mcg PO DAILY 09/27/22 09/27/22 Vit C/E/Zn/Coppr/Lutein/Zeaxan 1 cap PO BID 09/27/22 09/27/22 [Preservision Areds 2 Softgel] busPIRone HCL [Buspar] 7.5 mg PO BID 09/27/22 09/27/22 Previous Rx's Medication Instructions Recorded RX: Lidocaine 5% Patch [Lidoderm 1 patch TOPICAL DAILY PRN #7 patch 09/27/22 5% Patch] RX: predniSONE 50 mg PO DAILY #5 tab 09/27/22 Allergies Allergy/AdvReac Type Severity Reaction Status Date / Time sulfamethoxazole Allergy Rash/Hives Verified 09/27/22 10:47 [From Bactrim] trimethoprim [From Bactrim] Allergy Rash/Hives Verified 09/27/22 10:47 codeine AdvReac Chest Pain Verified 09/27/22 10:47 tuberculin skin test Allergy Swelling Uncoded 02/01/21 11:53 Review of Systems ROS Statement: Those systems with pertinent positive or pertinent negative responses have been documented in the HPI. ROS Other: All systems not noted in ROS Statement are negative. Past Medical History Past Medical History: Asthma, Cancer, Chest Pain / Angina, GERD/Reflux, Hyperlipidemia, Hypertension, Osteoarthritis (OA), Respiratory Disorder, Thyroid Disorder Additional Past Medical History / Comment(s): "spots on lungs" which cause some SOB, hx mild diverticulitis, varicose veins, hx colon cancer, hx thyroid nodules, History of Any Multi-Drug Resistant Organisms: None Reported Past Surgical History: Appendectomy, Bowel Resection, Breast Surgery, Cholecystectomy, Heart Catheterization, Hysterectomy, Joint Replacement, Tonsillectomy Additional Past Surgical History / Comment(s): kayleen knee arthroplasty, thyroidectomy, bilateral eye surgeries for detached retinas, cataract removal with lens implant to L eye, D&C, left breast biopsy, laser surgery rt eye, heart cath x 3 Past Anesthesia/Blood Transfusion Reactions: No Reported Reaction Additional Past Anesthesia/Blood Transfusion Reaction / Comment(s): Pt has never received blood. Past Psychological History: No Psychological Hx Reported Smoking Status: Former smoker Past Alcohol Use History: None Reported Past Drug Use History: None Reported - Past Family History Son(s) Family Medical History: Cancer Additional Family Medical History / Comment(s): melanoma Brother(s) Family Medical History: Cancer Additional Family Medical History / Comment(s): lung Sister(s) Family Medical History: CVA/TIA General Exam Limitations: no limitations General appearance: alert, in no apparent distress Head exam: Present: atraumatic, normocephalic, normal inspection Respiratory exam: Present: normal lung sounds bilaterally. Absent: respiratory distress, wheezes, rales, rhonchi, stridor Cardiovascular Exam: Present: regular rate, normal rhythm, normal heart sounds. Absent: systolic murmur, diastolic murmur, rubs, gallop, clicks Back exam: Present: normal inspection, full ROM, paraspinal tenderness (Right lumbar). Absent: CVA tenderness (R), CVA tenderness (L), vertebral tenderness, rash noted Neurological exam: Present: alert, oriented X3, CN II-XII intact Psychiatric exam: Present: normal affect, normal mood Skin exam: Present: warm, dry, intact, normal color. Absent: rash Course Vital Signs 09/27/22 10:09 Temperature 97.4 F L Pulse Rate 72 Respiratory 16 Rate Blood Pressure 174/84 O2 Sat by Pulse 99 Oximetry Medical Decision Making - Medical Decision Making Was pt. sent in by a medical professional or institution (ADRIANNE Treviño, CONTRACTS DIRECTOR, urgent care, hospital, or senior care...) When possible be specific @ -No Did you speak to anyone other than the patient for history (EMS, parent, family, police, friend...)? What history was obtained from this source @ -No Did you review nursing and triage notes (agree or disagree)? Why? @ -I reviewed and agree with nursing and triage notes Were old charts reviewed (outside hosp., previous admission, EMS record, old EKG, old radiological studies, urgent care reports/EKG's, senior care records)? Report findings @ -No old charts were reviewed Differential Diagnosis (chest pain, altered mental status, abdominal pain women, abdominal pain men, vaginal bleeding, weakness, fever, dyspnea, syncope, headac he, dizziness, GI bleed, back pain, seizure, CVA, palpatations, mental health)? @ -Differential Back Pain: Strain, zoster, cauda equina syndrome, epidural abscess, vertebral osteo myelitis, discitis, fracture, subluxation, disc herniation, DJD, spinal stenosis, dissection, AAA, pancreatitis, peptic ulcer disease, pyelonephritis, kidney stone, this is not meant to be an all-inclusive list. EKG interpreted by me (3pts min.). @ -As above X-rays interpreted by me (1pt min.). @ -None done CT interpreted by me (1pt min.). @ -None done U/S interpreted by me (1pt. min.). @ -None done What testing was considered but not performed or refused? (CT, X-rays, U/S, labs)? Why? @ Considered imaging however patient did not sustain injury or fall. She does not have any spinal tenderness. What meds were considered but not given or refused? Why? @ -None Did you discuss the management of the patient with other professionals (professionals i.e. ADRIANNE Treviño, CONTRACTS DIRECTOR, lab, RT, psych nurse, child welfare social worker, grass farm laborer, teacher, risk officer, case monitor)? Give summary @ -No Was smoking cessation discussed for >3mins.? @ -No Was critical care preformed (if so, how long)? @ -No Were there social determinants of health that impacted care today? How? (Homelessness, low income, unemployed, alcoholism, drug addiction, transportation, low edu. Level, literacy, decrease access to med. care, usp, rehab)? @ -No Was there de-escalation of care discussed even if they declined (Discuss DNR or withdrawal of care, Hospice)? DNR status @ -No What co-morbidities impacted this encounter? (DM, HTN, Smoking, COPD, CAD, Cancer, CVA, ARF, Chemo, Hep., AIDS, mental health diagnosis, sleep apnea, morbid obesity)? @ -None Was patient admitted / discharged? Hospital course, mention meds given and route, prescriptions, significant lab abnormalities, going to OR and other pertinent info. @ Patient presenting for back pain. Clinical presentation consistent with mechanical back pain. Patient does have some burning down her leg therefore steroid medication will be attempted. Patient treated in the emergency depa rtment with improvement of symptoms. Patient does not have any bony tenderness. No signs or symptoms of cauda equina. She will be discharged home with conservative management and with orthopedic referral Undiagnosed new problem with uncertain prognosis? @ -No Drug Therapy requiring intensive monitoring for toxicity (Heparin, Nitro, Insul in, Cardizem)? @ -No Were any procedures done? @ -No Diagnosis/symptom? @ -Mechanical back pain Acute, or Chronic, or Acute on Chronic? @ -Acute Uncomplicated (without systemic symptoms) or Complicated (systemic symptoms)? @ -Uncomplicated Side effects of treatment? @ -No Exacerbation, Progression, or Severe Exacerbation? @ -No Poses a threat to life or bodily function? How? (Chest pain, [place], [place], pneumonia, PE, COPD, DKA, ARF, appy, cholecystitis, CVA, Diverticulitis, Homicidal, Suicidal, threat to staff... and all critical care pts) @ -No Dr. Padilla is my attending Disposition Clinical Impression: Mechanical back pain Disposition: HOME SELF-CARE Condition: Good Instructions (If sedation given, give patient instructions): Acute Low Back Pain (ED) Additional Instructions: Take medication as directed. Continue Tylenol for pain. Use of warm compress may help symptoms. Follow up with marketing analytics specialist in one to 2 days. Return to the emergency department if you experience new, concerning, or worsening symptoms. Prescriptions: RX: Lidocaine 5% Patch [Lidoderm 5% Patch] 1 patch TOPICAL DAILY PRN #7 patch PRN Reason: Pain RX: predniSONE 50 mg PO DAILY #5 tab Is patient prescribed a controlled substance at d/c from ED?: No Referrals: Ariana Barr DO [Primary Care Provider] - 1-2 days Lisandro Aldridge MD [STAFF PHYSICIAN] - 1-2 days
[2022-09-27 11:51] VITALS: BP 138/82; PULSE 76; TEMP 97.9
== END 2022-09-27 11:20 | disposition home or self-care (01) ==
LOC: EC 10:08
DX: M54.50 Low back pain, unspecified (principal); J45.909 Unspecified asthma, uncomplicated; I10 Essential (primary) hypertension; E78.5 Hyperlipidemia, unspecified; K21.9 Gastro-esophageal reflux disease without esophagitis; E07.9 Disorder of thyroid, unspecified; Z88.2 Allergy status to sulfonamides; Z88.1 Allergy status to other antibiotic agents; Z88.5 Allergy status to narcotic agent; Z90.49 Acquired absence of other specified parts of digestive tract; Z90.710 Acquired absence of both cervix and uterus; Z95.5 Presence of coronary angioplasty implant and graft; Z96.653 Presence of artificial knee joint, bilateral; Z79.890 Hormone replacement therapy; Z87.891 Personal history of nicotine dependence; Z79.899 Other long term (current) drug therapy
CPT/HCPCS: 99283; 96372; J2930; J1885

== ENCOUNTER → 2023-03-24 | Outpatient (CLI) | payer MEDICARE, BC ==
--- NOTE | 2023-03-24 16:51 | US ---
EXAMINATION TYPE: US venous doppler duplex LE RT DATE OF EXAM: 03/24/2023 3:27 PM COMPARISON: NONE CLINICAL INDICATION: Female, 87 years old with history of R60.0 Edema; Right leg pain SIDE PERFORMED: Right TECHNIQUE: The lower extremity deep venous system is examined utilizing real time linear array sonog martin with graded compression, doppler sonography and color-flow sonography. VESSELS IMAGED: Common Femoral Vein Deep Femoral Vein Greater Saphenous Vein * Femoral Vein Popliteal Vein Small Saphenous Vein * Proximal Calf Veins (* superficial vessels) Right Leg: Negative for DVT IMPRESSION: Grayscale, color doppler, spectral doppler imaging performed of the deep veins of the lo wer extremities. There is normal flow, compressibility, vascular waveforms.
--- NOTE | 2023-03-24 19:03 | US ---
EXAMINATION TYPE: US pelvic limited DATE OF EXAM: 03/24/2023 COMPARISON: NONE CLINICAL INDICATION: Female, 87 years old with history of R10.2 PELVIC AND PERINEAL PAIN; Pt states d ifficulty urinating TECHNIQUE: Transabdominal (TA). Transabdominal sonographic images of the pelvis were acquired. Date of LMP: Hysterectomy at age 50 1. Uterus: Surgically absent 2. Endometrium: Surgically absent 3. Right Ovary: Surgically absent 4. Left Ovary: Surgically absent 5. Bilateral Adnexa: wnl 6. Posterior cul-de-sac: wnl IMPRESSION: Postoperative pelvis. No evidence for recurrent mass or free fluid.
== END | disposition home or self-care (01) ==
LOC: RADUSWWP 14:50
PROVIDERS: ATTEND Family Medicine
DX: R10.2 Pelvic and perineal pain (principal); R60.0 Localized edema
CPT/HCPCS: 76857

== ENCOUNTER 2023-04-13 10:20 | Emergency (ER) | payer MEDICARE, BC ==
[2023-04-13] MEDS ORDERED: KETOROLAC 15 MG/ML 1 ML VIAL IVP STA (11:09)
--- NOTE | 2023-04-13 11:16 | ED ---
General Adult HPI - General Chief complaint: Back Pain/Injury Stated complaint: L side back pain Time Seen by Provider: 04/13/23 10:52 Source: patient, RN notes reviewed Mode of arrival: ambulatory Limitations: no limitations - History of Present Illness Initial comments: 87-year-old female presents with chief complaint of left flank pain that radiates to her right lower abdomen and thigh. He states that this started around 2 weeks ago and has been constant. She reports that the pain is somewhat improved with Excedrin and Tylenol but still persists. She reports that since yesterday she has been having pain in her lower abdomen bilaterally. She denies any urinary frequency but admits to dysuria. She reports that she had a ultrasound of her bladder recently which she reports is normal. She also states that she had a urine test done at her primary care provider and was told that there is blood in urine. She denies any fever, chills. She admits to nausea without vomiting. She reports normal bowel movements. - Related Data Home Medications Medication Instructions Recorded Confirmed Losartan/Hydrochlorothiazide 1 tab PO DAILY 07/08/15 09/27/22 [Hyzaar 100-25 Tablet] atenoloL 25 mg PO BID 07/08/15 09/27/22 Isosorbide Mononitrate ER [Imdur] 30 mg PO DAILY 10/01/20 09/27/22 Pantoprazole [Protonix] 40 mg PO DAILY 02/01/21 09/27/22 Levothyroxine Sodium [Synthroid] 125 mcg PO DAILY 09/27/22 09/27/22 Vit C/E/Zn/Coppr/Lutein/Zeaxan 1 cap PO BID 09/27/22 09/27/22 [Preservision Areds 2 Softgel] busPIRone HCL [Buspar] 7.5 mg PO BID 09/27/22 09/27/22 Previous Rx's Medication Instructions Recorded Lidocaine 5% Patch [Lidoderm 5% 1 patch TOPICAL DAILY PRN #7 patch 09/27/22 Patch] predniSONE 50 mg PO DAILY #5 tab 09/27/22 traMADol HCl [Ultram] 50 mg PO Q6H PRN #12 tab 04/13/23 Allergies Allergy/AdvReac Type Severity Reaction Status Date / Time sulfamethoxazole Allergy Rash/Hives Verified 04/13/23 10:48 [From Bactrim] trimethoprim [From Bactrim] Allergy Rash/Hives Verified 04/13/23 10:48 codeine AdvReac Chest Pain Verified 04/13/23 10:48 tuberculin skin test Allergy Swelling Uncoded 04/13/23 10:48 Review of Systems ROS Statement: Those systems with pertinent positive or pertinent negative responses have been documented in the HPI. ROS Other: All systems not noted in ROS Statement are negative. Past Medical History Past Medical History: Asthma, Cancer, Chest Pain / Angina, GERD/Reflux, Hyperlipidemia, Hypertension, Osteoarthritis (OA), Respiratory Disorder, Thyroid Disorder Additional Past Medical History / Comment(s): "spots on lungs" which cause some SOB, hx mild diverticulitis, varicose veins, hx colon cancer, hx thyroid nodules, History of Any Multi-Drug Resistant Organisms: None Reported Past Surgical History: Appendectomy, Bowel Resection, Breast Surgery, Cholecystectomy, Heart Catheterization, Hysterectomy, Joint Replacement, Tonsillectomy Additional Past Surgical History / Comment(s): kayleen knee arthroplasty, thyroidectomy, bilateral eye surgeries for detached retinas, cataract removal with lens implant to L eye, D&C, left breast biopsy, laser surgery rt eye, heart cath x 3 Past Anesthesia/Blood Transfusion Reactions: No Reported Reaction Additional Past Anesthesia/Blood Transfusion Reaction / Comment(s): Pt has never received blood. Past Psychological History: No Psychological Hx Reported Smoking Status: Former smoker Past Alcohol Use History: None Reported Past Drug Use History: None Reported - Past Family History Son(s) Family Medical History: Cancer Additional Family Medical History / Comment(s): melanoma Brother(s) Family Medical History: Cancer Additional Family Medical History / Comment(s): lung Sister(s) Family Medical History: CVA/TIA General Exam Limitations: no limitations General appearance: alert, in no apparent distress Head exam: Present: atraumatic, normocephalic, normal inspection Eye exam: Present: normal appearance ENT exam: Present: normal exam, mucous membranes moist Neck exam: Present: normal inspection. Absent: tenderness, meningismus, lymphadenopathy Respiratory exam: Present: normal lung sounds bilaterally. Absent: respiratory distress, wheezes, rales, rhonchi, stridor Cardiovascular Exam: Present: regular rate, normal rhythm, normal heart sounds. Absent: systolic murmur, diastolic murmur, rubs, gallop, clicks GI/Abdominal exam: Present: soft, tenderness (suprapubic), normal bowel sounds. Absent: distended, guarding, rebound, rigid Course Vital Signs 04/13/23 04/13/23 04/13/23 10:48 12:48 14:48 Temperature 97.4 F L 97.8 F 97.6 F Pulse Rate 76 72 73 Respiratory 16 18 17 Rate Blood Pressure 146/80 152/90 150/88 O2 Sat by Pulse 98 98 97 Oximetry Medical Decision Making - Medical Decision Making Was pt. sent in by a medical professional or institution (, PA, DB2 DEVELOPER, urgent care, hospital, or prison...) When possible be specific @ -No Did you speak to anyone other than the patient for history (EMS, parent, family, police, friend...)? What history was obtained from this source @ -No Did you review nursing and triage notes (agree or disagree)? Why? @ -I reviewed and agree with nursing and triage notes Were old charts reviewed (outside hosp., previous admission, EMS record, old EKG, old radiological studies, urgent care reports/EKG's, prison records)? Report findings @ -No old charts were reviewed Differential Diagnosis (chest pain, altered mental status, abdominal pain women, abdominal pain men, vaginal bleeding, weakness, fever, dyspnea, syncope, headache, dizziness, GI bleed, back pain, seizure, CVA, palpatations, mental health, musculoskeletal)? @ -Differential Abdominal Pain Women: Appendicitis, Cholecystitis, diverticulosis, ischemic bowel, pancreatitis, hepatitis, UTI, gastroenteritis, AAA, incarcerated hernia, bowel obstruction, constipation, inflammatory bowel, hepatitis, peptic ulcer disease, splenic infarction, perforated viscus, vulvitis, ovarian torsion, PID, kidney stone, placenta abruption, this is not meant to be an all-inclusive list EKG interpreted by me (3pts min.). @ -None X-rays interpreted by me (1pt min.). @ -None done CT interpreted by me (1pt min.). @ -None done U/S interpreted by me (1pt. min.). @ -None done What testing was considered but not performed or refused? (CT, X-rays, U/S, labs)? Why? @ -CT abdomen and pelvis showed no evidence of nephrolithiasis What meds were considered but not given or refused? Why? @ -None Did you discuss the management of the patient with other professionals (professionals i.e. , PA, DB2 DEVELOPER, lab, RT, psych nurse, vp digital marketing social media and crm, information technology specialist, teacher, financial services officer, test case developer)? Give summary @ -No Was smoking cessation discussed for >3mins.? @ -No Was critical care preformed (if so, how long)? @ -No Were there social determinants of health that impacted care today? How? (Homelessness, low income, unemployed, alcoholism, drug addiction, transportation, low edu. Level, literacy, decrease access to med. care, long-term, rehab)? @ -No Was there de-escalation of care discussed even if they declined (Discuss DNR or withdrawal of care, Hospice)? DNR status @ -No What co-morbidities impacted this encounter? (DM, HTN, Smoking, COPD, CAD, Cancer, CVA, ARF, Chemo, Hep., AIDS, mental health diagnosis, sleep apnea, morbid obesity)? @ -None Was patient admitted / discharged? Hospital course, mention meds given and route, prescriptions, significant lab abnormalities, going to OR and other pertinent info. @ -Discharged. Patient presented to emergency department chief complaint of flank pain radiating to her groin area 2 weeks.CBC within normal limits, CMP shows Na 139, K 4.2, BUN 22, Cr 1.4, consistent with prior. UA shows small blood, negative leukocyte esterase, negative nitrate, 3 WBCs; CT abd pelvis shows no acute abnormality. Patient given dose of toradol which improved her pain. Patient advised on findings and given follow up with urology. Patient stable at time of discharge. Case discussed with Dr. Trent. Undiagnosed new problem with uncertain prognosis? @ -No Drug Therapy requiring intensive monitoring for toxicity (Heparin, Nitro, Insulin, Cardizem)? @ -No Were any procedures done? @ -No Diagnosis/symptom? @ -Flank pain Acute, or Chronic, or Acute on Chronic? @ -acute Uncomplicated (without systemic symptoms) or Complicated (systemic symptoms)? @ -uncomplicated Side effects of treatment? @ -No Exacerbation, Progression, or Severe Exacerbation? @ -No Poses a threat to life or bodily function? How? (Chest pain, USA, DC, pneumonia, PE, COPD, DKA, ARF, appy, cholecystitis, CVA, Diverticulitis, Homicidal, Suicidal, threat to staff... and all critical care pts) @ -No - Lab Data Result diagrams: 04/13/23 11:45 04/13/23 12:15 Lab Results 04/13/23 04/13/23 04/13/23 Range/Units 11:45 12:15 12:15 WBC 7.8 (3.8-10.6) k/uL RBC 4.30 (3.80-5.40) m/uL Hgb 13.8 (11.4-16.0) gm/dL Hct 41.0 (34.0-46.0) % MCV 95.4 (80.0-100.0) fL MCH 32.0 (25.0-35.0) pg MCHC 33.6 (31.0-37.0) g/dL RDW 13.4 (11.5-15.5) % Plt Count 261 (150-450) k/uL MPV 8.5 Neutrophils % 69 % Lymphocytes % 18 % Monocytes % 6 % Eosinophils % 6 % Basophils % 1 % Neutrophils # 5.4 (1.3-7.7) k/uL Lymphocytes # 1.4 (1.0-4.8) k/uL Monocytes # 0.5 (0-1.0) k/uL Eosinophils # 0.5 (0-0.7) k/uL Basophils # 0.1 (0-0.2) k/uL Sodium 139 (137-145) mmol/L Potassium 4.2 (3.5-5.1) mmol/L Chloride 102 (98-107) mmol/L Carbon Dioxide 26 (22-30) mmol/L Anion Gap 11 mmol/L BUN 22 H (7-17) mg/dL Creatinine 1.40 H (0.52-1.04) mg/dL Est GFR (CKD-EPI)AfAm 39 (>60 ml/min/1.73 sqM) Est GFR (CKD-EPI)NonAf 34 (>60 ml/min/1.73 sqM) Glucose 112 H (74-99) mg/dL Plasma Lactic Acid Rick 1.5 (0.7-2.0) mmol/L Calcium 9.5 (8.4-10.2) mg/dL Total Bilirubin 0.4 (0.2-1.3) mg/dL AST 24 (14-36) U/L ALT 14 (4-34) U/L Alkaline Phosphatase 91 (38-126) U/L Total Protein 6.7 (6.3-8.2) g/dL Albumin 3.8 (3.5-5.0) g/dL Amylase 49 (30-110) U/L Lipase 70 (23-300) U/L Urine Color Urine Appearance (Clear) Urine pH (5.0-8.0) Ur Specific [place] (1.001-1.035) Urine Protein (Negative) Urine Glucose (UA) (Negative) Urine Ketones (Negative) Urine Blood (Negative) Urine Nitrite (Negative) Urine Bilirubin (Negative) Urine Urobilinogen (<2.0) mg/dL Ur Leukocyte Esterase (Negative) Urine RBC (0-5) /hpf Urine WBC (0-5) /hpf Ur Squamous Epith Cells (0-4) /hpf Urine Bacteria (None) /hpf Urine Mucus (None) /hpf 04/13/23 Range/Units 12:32 WBC (3.8-10.6) k/uL RBC (3.80-5.40) m/uL Hgb (11.4-16.0) gm/dL Hct (34.0-46.0) % MCV (80.0-100.0) fL MCH (25.0-35.0) pg MCHC (31.0-37.0) g/dL RDW (11.5-15.5) % Plt Count (150-450) k/uL MPV Neutrophils % % Lymphocytes % % Monocytes % % Eosinophils % % Basophils % % Neutrophils # (1.3-7.7) k/uL Lymphocytes # (1.0-4.8) k/uL Monocytes # (0-1.0) k/uL Eosinophils # (0-0.7) k/uL Basophils # (0-0.2) k/uL Sodium (137-145) mmol/L Potassium (3.5-5.1) mmol/L Chloride (98-107) mmol/L Carbon Dioxide (22-30) mmol/L Anion Gap mmol/L BUN (7-17) mg/dL Creatinine (0.52-1.04) mg/dL Est GFR (CKD-EPI)AfAm (>60 ml/min/1.73 sqM) Est GFR (CKD-EPI)NonAf (>60 ml/min/1.73 sqM) Glucose (74-99) mg/dL Plasma Lactic Acid Rick (0.7-2.0) mmol/L Calcium (8.4-10.2) mg/dL Total Bilirubin (0.2-1.3) mg/dL AST (14-36) U/L ALT (4-34) U/L Alkaline Phosphatase (38-126) U/L Total Protein (6.3-8.2) g/dL Albumin (3.5-5.0) g/dL Amylase (30-110) U/L Lipase (23-300) U/L Urine Color Colorless Urine Appearance Clear (Clear) Urine pH 6.0 (5.0-8.0) Ur Specific [place] 1.009 (1.001-1.035) Urine Protein Negative (Negative) Urine Glucose (UA) Negative (Negative) Urine Ketones Negative (Negative) Urine Blood Small H (Negative) Urine Nitrite Negative (Negative) Urine Bilirubin Negative (Negative) Urine Urobilinogen <2.0 (<2.0) mg/dL Ur Leukocyte Esterase Negative (Negative) Urine RBC 10 H (0-5) /hpf Urine WBC <1 (0-5) /hpf Ur Squamous Epith Cells 3 (0-4) /hpf Urine Bacteria Few H (None) /hpf Urine Mucus Rare H (None) /hpf Disposition Clinical Impression: Left flank pain Disposition: HOME SELF-CARE Condition: Stable Additional Instructions: Please follow up with urology. Continue with Tylenol for pain. Return to the e mergency department for new or worsening symptoms. Prescriptions: traMADol HCl [Ultram] 50 mg PO Q6H PRN #12 tab PRN Reason: Pain Is patient prescribed a controlled substance at d/c from ED?: No Referrals: Ariana Barr DO [Primary Care Provider] - 1-2 days Pranay Henley MD [STAFF PHYSICIAN] - 1-2 days
[2023-04-13 12:12] LABS: Basophils # (A) 0.1 k/uL (0-0.2); Basophils % (A) 1 %; Eosinophils # (A) 0.5 k/uL (0-0.7); Eosinophils % (A) 6 %; HGB 13.8 gm/dL (11.4-16.0); Lymphocytes # (A) 1.4 k/uL (1.0-4.8); Lymphocytes % (A) 18 %; MCHC 33.6 g/dL (31.0-37.0); MCV 95.4 fL (80.0-100.0); Mean Platelet Volume 8.5; Monocytes # (A) 0.5 k/uL (0-1.0); Monocytes % (A) 6 %; Neutrophils # (A) 5.4 k/uL (1.3-7.7); Neutrophils % (A) 69 %; Platelet Count 261 k/uL (150-450); RDW 13.4 % (11.5-15.5); WBC 7.8 k/uL (3.8-10.6)
--- NOTE | 2023-04-13 12:36 | CT ---
EXAMINATION TYPE: CT abdomen pelvis wo con DATE OF EXAM: 04/13/2023 COMPARISON: 02/23/2018 HISTORY: left flank pain, hematuria [id number] CT DLP: 1322 mGycm Examination of the solid and hollow viscera is limited given the lack of contrast. FINDINGS: LUNG BASES: No evidence for nodule. No evidence for infiltrate. Small hiatal hernia noted. LIVER/GB: The gallbladder is surgically absent. No space-occupying hepatic lesion. PANCREAS: No pancreatic mass identified. No inflammatory process seen. SPLEEN: No evidence for splenomegaly. No intrasplenic lesions seen. ADRENALS: No adrenal nodules identified. No evidence for thickening. KIDNEYS: No evidence for renal mass. No nephrolithiasis. No hydronephrosis. BOWEL: Appendix has a normal appearance. No evidence of bowel obstruction. No inflammatory process. P artial right hemicolectomy changes with normal-appearing anastomosis. Sigmoid diverticulosis without diverticulitis. Lymph nodes: No evidence for adenopathy greater than 1 cm. Abdominal aorta: Atheromatous changes seen. No evidence for aneurysm. Genital organs: No significant abnormality. Other: No significant abnormality. IMPRESSION: 1. No significant abnormality seen to account for the patient's symptoms.
[2023-04-13 12:43] LABS: ALT 14 U/L (4-34); AST 24 U/L (14-36); African American GFR (CKD) 39 (>60 ml/min/1.73 sqM); Albumin 3.8 g/dL (3.5-5.0); Alkaline Phosphatase 91 U/L (38-126); Amylase 49 U/L (30-110); Anion Gap 11 mmol/L; Blood Urea Nitrogen 22 mg/dL (7-17); Calcium 9.5 mg/dL (8.4-10.2); Carbon Dioxide 26 mmol/L (22-30); Chloride 102 mmol/L (98-107); Glucose 112 mg/dL (74-99); Lipase 70 U/L (23-300); Non-African American GFR(CKD) 34 (>60 ml/min/1.73 sqM); Potassium 4.2 mmol/L (3.5-5.1); Sodium 139 mmol/L (137-145); Total Bilirubin 0.4 mg/dL (0.2-1.3); Total Protein 6.7 g/dL (6.3-8.2)
[2023-04-13 13:10] LABS: Appearance,Urine Clear (Clear); Bacteria,Urine Few /hpf; Bilirubin,Urine Negative (Negative); Blood,Urine Small (Negative); Color,Urine Colorless; Glucose,Urine (UA) Negative (Negative); Ketones,Urine Negative (Negative); Leukocyte Esterase,Urine Negative (Negative); Mucus,Urine Rare /hpf; Nitrite,Urine Negative (Negative); Protein,Urine Negative (Negative); RBC,Urine 10 /hpf (0-5); Specific Gravity,Urine 1.009 (1.001-1.035); Squamous Epithelial Cell,Urine 3 /hpf (0-4); Urobilinogen,Urine <2.0 mg/dL (<2.0); WBC,Urine <1 /hpf (0-5)
[2023-04-13 14:50] VITALS: BP 150/88; PULSE 73; RESP 17; TEMP 97.6
== END 2023-04-13 14:48 | disposition home or self-care (01) ==
LOC: EC 10:20
DX: R10.30 Lower abdominal pain, unspecified (principal); J45.909 Unspecified asthma, uncomplicated; K21.9 Gastro-esophageal reflux disease without esophagitis; I10 Essential (primary) hypertension; E07.9 Disorder of thyroid, unspecified; Z87.891 Personal history of nicotine dependence; Z79.890 Hormone replacement therapy; Z79.899 Other long term (current) drug therapy; Z88.5 Allergy status to narcotic agent; Z88.1 Allergy status to other antibiotic agents; Z88.2 Allergy status to sulfonamides; Z88.8 Allergy status to other drugs, medicaments and biological substances
CPT/HCPCS: 36415; 80053; 82150; 83605; 83690; 85025; 81001; 74176; 99284; 96374; J1885

== ENCOUNTER → 2023-06-06 | Outpatient (CLI) | payer MEDICARE, BC ==
[2023-06-06 15:07] LABS: African American GFR (CKD) 37 (>60 ml/min/1.73 sqM); Blood Urea Nitrogen 33 mg/dL (7-17); Non-African American GFR(CKD) 32 (>60 ml/min/1.73 sqM)
--- NOTE | 2023-06-07 08:51 | CT ---
EXAMINATION TYPE: CT chest wo con DATE OF EXAM: 06/06/2023 COMPARISON: 04/04/2016 HISTORY: lung nodule x [address] DLP: 735.[address] of the chest was performed with lung and mediastinal window settings submitted. The la ck of contrast limits evaluation of the vascular, mediastinal and parenchymal structures including th e upper abdomen. LUNGS: 3 new pulmonary nodules are seen within the left lung the largest within the left upper lobe m easures 1.1 cm. Several nodules right lung are also new with the largest being in the superior segmen t right lower lobe measuring 1.4 cm with groundglass appearance. Right upper lobe pulmonary nodule 5. 9 mm. Tiny nodule measuring 4 mm right middle lobe anteriorly. MEDIASTINUM/DEMETRIO: Thoracic aorta is of normal caliber with limited evaluation given lack of contrast . The heart is not enlarged. No evidence for mediastinal mass. No lymph nodes greater than 1cm. UPPER ABDOMEN: No significant abnormality is seen. OTHER: No significant other abnormality. IMPRESSION: 1. Multiple new pulmonary nodules since 2016. PET CT recommended for further evaluation.
== END | disposition home or self-care (01) ==
LOC: RADCTMAIN 08:18
PROVIDERS: ATTEND Family Medicine
DX: R91.8 Other nonspecific abnormal finding of lung field (principal)
CPT/HCPCS: 71250; 82565; 84520

== ENCOUNTER → 2023-07-06 | Outpatient (CLI) | payer MEDICARE, BC ==
--- NOTE | 2023-07-09 09:49 | PE ---
EXAMINATION TYPE: PET CT fusion skull to thigh DATE OF EXAM: 07/06/2023 CLINICAL INDICATION:Female, 87 years old with history of R91.1 pulmonary nodule; TECHNIQUE: Following the intravenous administration of 9.72 mCi of F-18 FDG, whole body images are performed from the skull base to the midthigh. Images are reviewed on the computer in the coronal, a xial, and sagittal planes. Reconstructed rotating images are created on independent workstation and reviewed on the computer. A non-contrast CT is performed in conjunction with the PET scan. Glucose level 93 mg/dL CT DLP: 842 mGycm, Automated exposure control for dose reduction was used. COMPARISON: CT 05/29/2023, 04/13/2023, PET/CT None, FINDINGS: Mediastinal SUV mean is 2.6. Hepatic parenchyma SUV mean is 2.5. SKULL BASE AND NECK: No suspicious radiotracer activity. CHEST, MEDIASTINUM, AND HILAR REGION: * Right hilum lymph node max SUV 4.8 measurements difficult without IV contrast. * Left hilum heterogenous uptake max SUV 5.5. * Right low paratracheal lymph node max SUV 5.5 measuring 8 mm with internal calcification. * Left upper lung anterior pulmonary nodule measuring 10 mm Max SUV 1.5. * Left upper lobe posterior pulmonary nodule measuring 9 mm Max SUV 1.4. ABDOMEN AND PELVIS: No suspicious radiotracer activity. MUSCULOSKELETAL STRUCTURES: No suspicious radiotracer activity. OTHER CT: Postsurgical changes left globe. Bilateral aphakia. Atherosclerosis of the intracranial vas culature and coronary arteries. The heart is mildly enlarged for size. The gallbladder surgically abs ent. Surgical changes to the right colon. Scattered colonic diverticula. IMPRESSION: 1. Left upper lobe pulmonary nodules with FDG activity below background levels. These could relate t o greater lung apices. Consider short-term follow-up CT chest in 3 months to ensure stability. 2. Sternal lymph nodes which are nonenlarged and may have mildly increased FDG activity in the right pulmonary hilum and right low paratracheal region findings could represent chronic granulomatous christine nge. Attention follow-up CT.
== END | disposition home or self-care (01) ==
LOC: RADPETMAIN 09:43
PROVIDERS: ATTEND Family Medicine
DX: R91.8 Other nonspecific abnormal finding of lung field (principal)
CPT/HCPCS: 78815; A9552

== ENCOUNTER → 2023-10-06 | Outpatient (CLI) | payer MEDICARE, BC ==
[2023-10-06 12:23] LABS: African American GFR (CKD) 34 (>60 ml/min/1.73 sqM); Blood Urea Nitrogen 32 mg/dL (7-17); Non-African American GFR(CKD) 29 (>60 ml/min/1.73 sqM)
--- NOTE | 2023-10-12 14:01 | CT ---
EXAMINATION TYPE: CT chest wo con CT DLP: 467.5 mGycm, Automated exposure control for dose reduction was used. DATE OF EXAM: 10/06/2023 1:36 PM COMPARISON: Chest radiograph from same day. Multiple CTs of the chest with most recent on . CLINICAL INDICATION:Female, 87 years old with history of R91.1 SOLITARY PULMONARY NODULE; PHH, SOLITA RY PULMONARY NODULE TECHNIQUE: Multiple axial images were obtained through the chest. Sagittal and coronal reformats were created for review. Contrast used: mL of (None if empty) Oral contrast used: (None if empty) FINDINGS: Pulmonary nodules: Pleural-based 11 mm nodule seen in the anterior lingula. There is 4, image 20. No significantly lewis ed from the prior exam of 06/06/2023. A 9 mm nodule in the left upper lobe is 2 mm smaller than the prior exam. LUNGS/ PLEURA: The lung parenchyma appears otherwise unremarkable. AIRWAY: Patent and unremarkable. HEART: Upper limits of normal to mildly enlarged.. Moderate calcific atherosclerotic coronary artery disease. MEDIASTINUM: No gross evidence of adenopathy. VASCULATURE: No aortic aneurysm. MUSCULOSKELETAL: No acute osseous abnormalities SOFT TISSUES/LYMPH NODES: Unremarkable. LOWER NECK: No significant findings. UPPER ABDOMEN: No significant findings. IMPRESSION: Heart size Upper limits of normal to mildly enlarged.. Moderate calcific atherosclerotic coronary a rtery disease. Two pulmonary nodules which are stable. Follow up recommendations for incidental pulmonary nodules, if there are any, are per [employer] [employer] or [employer]. [email or web address]?lang=us
== END | disposition home or self-care (01) ==
LOC: RADCTMAIN 11:34
PROVIDERS: ATTEND Family Medicine
DX: I25.10 Atherosclerotic heart disease of native coronary artery without angina pectoris (principal); R91.8 Other nonspecific abnormal finding of lung field
CPT/HCPCS: 36415; 71250; 82565; 84520

== ENCOUNTER 2024-01-02 16:12 | Emergency (ER) | payer MEDICARE, BC ==
[2024-01-02 16:16] VITALS: TEMP 98.9
[2024-01-02 17:42] LABS: ALT 11 U/L (4-34); African American GFR (CKD) 37 (>60 ml/min/1.73 sqM); Albumin 3.7 g/dL (3.5-5.0); Anion Gap 5 mmol/L; Blood Urea Nitrogen 28 mg/dL (7-17); Carbon Dioxide 28 mmol/L (22-30); Chloride 102 mmol/L (98-107); Glucose 110 mg/dL (74-99); Lipase 55 U/L (23-300); Non-African American GFR(CKD) 32 (>60 ml/min/1.73 sqM); Sodium 135 mmol/L (137-145); Total Protein 6.4 g/dL (6.3-8.2)
[2024-01-02 17:46] LABS: Basophils # (A) 0.1 k/uL (0-0.2); Basophils % (A) 1 %; Eosinophils # (A) 0.4 k/uL (0-0.7); Eosinophils % (A) 3 %; HCT 36.2 % (34.0-46.0); HGB 11.7 gm/dL (11.4-16.0); Lymphocytes # (A) 1.8 k/uL (1.0-4.8); Lymphocytes % (A) 14 %; MCH 30.4 pg (25.0-35.0); MCHC 32.3 g/dL (31.0-37.0); MCV 93.9 fL (80.0-100.0); Mean Platelet Volume 9.5; Monocytes # (A) 1.1 k/uL (0-1.0); Monocytes % (A) 8 %; Neutrophils # (A) 9.6 k/uL (1.3-7.7); Neutrophils % (A) 73 %; Platelet Count 243 k/uL (150-450); RBC 3.86 m/uL (3.80-5.40); RDW 13.9 % (11.5-15.5); WBC 13.3 k/uL (3.8-10.6)
[2024-01-02 18:00] LABS: AST 24 U/L (14-36); Alkaline Phosphatase 67 U/L (38-126); Potassium 4.3 mmol/L (3.5-5.1)
--- NOTE | 2024-01-02 19:05 | CT ---
EXAMINATION TYPE: CT abdomen pelvis w con CT DLP: 1765.8 mGycm, Automated exposure control for dose reduction was used. DATE OF EXAM: 01/02/2024 6:33 PM COMPARISON: PET/CT 07/06/2023 CLINICAL INDICATION:Female, 88 years old with history of abdominal pain; Lower pelvic pain and hematu rodolfo TECHNIQUE: Axial CT abdomen pelvis w con;Sagittal and coronal reformats were created on a separate w orkstation. Contrast used:80 cc mL of Isovue 300 with IV Contrast, (none if empty) Oral contrast used: without Oral Contrast (none if empty) FINDINGS: LOWER CHEST: Heart is mildly enlarged for size. ABDOMEN LIVER: Unremarkable GALLBLADDER AND BILE DUCTS: Gallbladder is surgically absent with mild intrahepatic and extra hepatic biliary dilatation likely physiologic and a postcholecystectomy change. No evidence of choledocholit hiasis. PANCREAS: Unremarkable. SPLEEN: Unremarkable. ADRENAL GLANDS: Unremarkable. KIDNEYS AND URETERS: No evidence of hydronephrosis or renal calculus. The ureters are unremarkable. PELVIS BLADDER: Unremarkable REPRODUCTIVE: Unremarkable. ABDOMEN & PELVIS STOMACH AND BOWEL: There are colonic diverticula present, one of which has adjacent fat stranding christine nges. No organizing fluid collection or evidence of pneumoperitoneum. No evidence of bowel obstructio n. PERITONEUM/RETROPERITONEUM: No evidence of pneumoperitoneum or free fluid. VASCULATURE: Mild atherosclerotic calcifications are present throughout the abdominal aorta and its b ranches. No evidence of aortic aneurysm. MUSCULOSKELETAL: No acute osseous abnormalities. Mild disc degeneration changes are present throughou t the thoracolumbar spine. LYMPH NODES: No gross evidence for lymphadenopathy. SOFT TISSUE/ABDOMINAL WALL: Unremarkable IMPRESSION: 1. Acute uncomplicated sigmoid diverticulitis/colitis. No organizing fluid collection or free air. 2. No evidence for obstructive uropathy or renal calculus.
[2024-01-02 19:32] VITALS: RESP 16
[2024-01-02] MEDS: SODIUM CHLORIDE 0.9% 1,000 ML IV ONE (20:32)
[2024-01-02 20:47] LABS: Appearance,Urine Clear (Clear); Bilirubin,Urine Negative (Negative); Blood,Urine Moderate (Negative); Color,Urine Yellow; Glucose,Urine (UA) Negative (Negative); Ketones,Urine Negative (Negative); Leukocyte Esterase,Urine Negative (Negative); Mucus,Urine Rare /hpf; Nitrite,Urine Negative (Negative); Protein,Urine Negative (Negative); RBC,Urine 15 /hpf (0-5); Specific Gravity,Urine 1.019 (1.001-1.035); Squamous Epithelial Cell,Urine 1 /hpf (0-4); Urobilinogen,Urine <2.0 mg/dL (<2.0); WBC,Urine 1 /hpf (0-5)
[2024-01-02] MEDS: cefTRIAXone IN SWFI 1,000 MG/10 ML SYRINGE IVP STA (21:15)
[2024-01-02] MEDS: metroNIDAZOLE 500 MG TAB PO STA (21:18)
[2024-01-02 21:23] VITALS: BP 139/73; PULSE 68
--- NOTE | 2024-01-02 21:23 | ED ---
Abdominal Pain HPI - General Chief Complaint: Abdominal Pain Stated Complaint: Abd Pain,Blood in Urine Time Seen by Provider: 01/02/24 16:15 Source: patient Mode of arrival: wheelchair Limitations: no limitations - History of Present Illness Initial Comments: 88-year-old female presents emergency department reporting left lower quadrant abdominal pain starting Monday. She reports to some bright red blood in her stool. Patient also admits to scopic hematuria. States that this is chronic for her. Patient has no gross blood in her urine. She denies fevers. No nausea or vomiting. No numbness, tingling or weakness in her legs. No other alleviating, precipitating or modifying factors - Related Data Home Medications Medication Instructions Recorded Confirmed Losartan/Hydrochlorothiazide 1 tab PO DAILY 07/08/15 01/02/24 [Hyzaar 100-25 Tablet] atenoloL 25 mg PO BID 07/08/15 01/02/24 Isosorbide Mononitrate ER [Imdur] 30 mg PO DAILY 10/01/20 01/02/24 Pantoprazole [Protonix] 40 mg PO BID 02/01/21 01/02/24 Levothyroxine Sodium [Synthroid] 125 mcg PO DAILY 09/27/22 01/02/24 Vit C/E/Zn/Coppr/Lutein/Zeaxan 1 cap PO DAILY 09/27/22 01/02/24 [Preservision Areds 2 Softgel] Ascorbic Acid [Vitamin C] 500 mg PO DAILY 01/02/24 01/02/24 Ciprofloxacin HCl [Cipro] 250 mg PO BID 01/02/24 01/02/24 Previous Rx's Medication Instructions Recorded Amoxic-Pot Clav 875-125Mg 1 tab PO BID 10 Days #20 tab 01/02/24 [Augmentin 875-125] Allergies Allergy/AdvReac Type Severity Reaction Status Date / Time codeine Allergy Anaphylaxis, Verified 01/02/24 17:42 "Haves a heart attack" (per patient) sulfamethoxazole Allergy Rash/Hives Verified 01/02/24 17:42 [From Bactrim] trimethoprim [From Bactrim] Allergy Rash/Hives Verified 01/02/24 17:42 tuberculin skin test Allergy Swelling Uncoded 01/02/24 16:16 Review of Systems ROS Statement: Those systems with pertinent positive or pertinent negative responses have been documented in the HPI. ROS Other: All systems not noted in ROS Statement are negative. Past Medical History Past Medical History: Asthma, Cancer, Chest Pain / Angina, GERD/Reflux, Hyperlipidemia, Hypertension, Osteoarthritis (OA), Respiratory Disorder, Thyroid Disorder Additional Past Medical History / Comment(s): "spots on lungs" which cause some SOB, hx mild diverticulitis, varicose veins, hx colon cancer, hx thyroid nodules, History of Any Multi-Drug Resistant Organisms: None Reported Past Surgical History: Appendectomy, Bowel Resection, Breast Surgery, Cholecystectomy, Heart Catheterization, Hysterectomy, Joint Replacement, Tonsillectomy Additional Past Surgical History / Comment(s): kayleen knee arthroplasty, thyroidectomy, bilateral eye surgeries for detached retinas, cataract removal with lens implant to L eye, D&C, left breast biopsy, laser surgery rt eye, heart cath x 3 Past Anesthesia/Blood Transfusion Reactions: No Reported Reaction Additional Past Anesthesia/Blood Transfusion Reaction / Comment(s): Pt has never received blood. Past Psychological History: No Psychological Hx Reported Smoking Status: Former smoker Past Alcohol Use History: None Reported Past Drug Use History: None Reported - Past Family History Son(s) Family Medical History: Cancer Additional Family Medical History / Comment(s): melanoma Brother(s) Family Medical History: Cancer Additional Family Medical History / Comment(s): lung Sister(s) Family Medical History: CVA/TIA General Exam Limitations: no limitations General appearance: alert, in no apparent distress Head exam: Present: atraumatic, normocephalic, normal inspection Eye exam: Present: normal appearance, PERRL, EOMI. Absent: scleral icterus, conjunctival injection, periorbital swelling ENT exam: Present: normal exam, mucous membranes moist Neck exam: Present: normal inspection. Absent: tenderness, meningismus, lymphadenopathy Respiratory exam: Present: normal lung sounds bilaterally. Absent: respiratory distress, wheezes, rales, rhonchi, stridor Cardiovascular Exam: Present: regular rate, normal rhythm, normal heart sounds. Absent: systolic murmur, diastolic murmur, rubs, gallop, clicks GI/Abdominal exam: Present: soft, tenderness (Lower quadrant), normal bowel sounds. Absent: distended, guarding, rebound, rigid Extremities exam: Present: normal inspection, full ROM, normal capillary refill. Absent: tenderness, pedal edema, joint swelling, calf tenderness Back exam: Present: normal inspection Neurological exam: Present: alert, oriented X3, CN II-XII intact Psychiatric exam: Present: normal affect, normal mood Skin exam: Present: warm, dry, intact, normal color. Absent: rash Course Vital Signs 01/02/24 01/02/24 01/02/24 16:13 17:41 19:31 Temperature 98.9 F Pulse Rate 89 64 70 Respiratory 18 18 16 Rate Blood Pressure 122/62 136/74 118/56 O2 Sat by Pulse 95 95 97 Oximetry 01/02/24 21:21 Temperature Pulse Rate 68 Respiratory 16 Rate Blood Pressure 139/73 O2 Sat by Pulse 97 Oximetry Medical Decision Making - Medical Decision Making Was pt. sent in by a medical professional or institution (, PA, DIGITAL FIELD SERVICE TECHNICIAN, urgent care, hospital, or shelter...) When possible be specific @ -No Did you speak to anyone other than the patient for history (EMS, parent, family, police, friend...)? What history was obtained from this source @ -Spoke with the patient's son for history Did you review nursing and triage notes (agree or disagree)? Why? @ -I reviewed and agree with nursing and triage notes Were old charts reviewed (outside hosp., previous admission, EMS record, old EKG, old radiological studies, urgent care reports/EKG's, shelter records)? Report findings @ -No old charts were reviewed Differential Diagnosis (chest pain, altered mental status, abdominal pain women, abdominal pain men, vaginal bleeding, weakness, fever, dyspnea, syncope, headache, dizziness, GI bleed, back pain, seizure, CVA, palpatations, mental health, musculoskeletal)? @ -Differential Abdominal Pain Women: Appendicitis, Cholecystitis, diverticulosis, ischemic bowel, pancreatitis, hepatitis, UTI, gastroenteritis, AAA, incarcerated hernia, bowel obstruction, constipation, inflammatory bowel, hepatitis, peptic ulcer disease, splenic infarction, perforated viscus, vulvitis, ovarian torsion, PID, kidney stone, placenta abruption, this is not meant to be an all-inclusive list EKG interpreted by me (3pts min.). @ -Done X-rays interpreted by me (1pt min.). @ -None done CT interpreted by me (1pt min.). @ -Yes and demonstrates diverticulitis U/S interpreted by me (1pt. min.). @ -None done What testing was considered but not performed or refused? (CT, X-rays, U/S, labs)? Why? @ -None What meds were considered but not given or refused? Why? @ -None Did you discuss the management of the patient with other professionals (professionals i.e. , PA, DIGITAL FIELD SERVICE TECHNICIAN, lab, RT, psych nurse, secondary social studies teacher, second butler, teacher, chief accounting officer, casey saw operator)? Give summary @ -No Was smoking cessation discussed for >3mins.? @ -No Was critical care preformed (if so, how long)? @ -No Were there social determinants of health that impacted care today? How? (Homelessness, low income, unemployed, alcoholism, drug addiction, transportati on, low edu. Level, literacy, decrease access to med. care, group home, rehab)? @ -No Was there de-escalation of care discussed even if they declined (Discuss DNR or withdrawal of care, Hospice)? DNR status @ -No What co-morbidities impacted this encounter? (DM, HTN, Smoking, COPD, CAD, Cancer, CVA, ARF, Chemo, Hep., AIDS, mental health diagnosis, sleep apnea, morbid obesity)? @ -Microscopic hematuria, diverticulosis Was patient admitted / discharged? Hospital course, mention meds given and route, prescriptions, significant lab abnormalities, going to OR and other pertinent info. @ -Upon arrival patient seen and evaluated in hallway 22. Thorough history and physical exam was performed. IV access was established. Laboratory studies are conducted. CT was performed. Patient does have diverticulitis. She will be initiated on antibiotics. She feels comfortable to go home. She will follow-up with her primary care doctor for reevaluation and return for any new or worsening symptoms. Patient agreeable plan was discharged in stable condition Undiagnosed new problem with uncertain prognosis? @ -No Drug Therapy requiring intensive monitoring for toxicity (Heparin, Nitro, Insulin, Cardizem)? @ -No Were any procedures done? @ -No Diagnosis/symptom? @ -Acute left lower quadrant abdominal pain, acute diverticulitis, chronic gross hematuria Acute, or Chronic, or Acute on Chronic? @ -Acute Uncomplicated (without systemic symptoms) or Complicated (systemic symptoms)? @ -Complicated Side effects of treatment? @ -No Exacerbation, Progression, or Severe Exacerbation? @ -No Poses a threat to life or bodily function? How? (Chest pain, USA, OR, pneumonia, PE, COPD, DKA, ARF, appy, cholecystitis, CVA, Diverticulitis, Homicidal, Suicidal, threat to staff... and all critical care pts) @ -No - Lab Data Result diagrams: 01/02/24 16:58 01/02/24 16:58 Lab Results 01/02/24 01/02/24 01/02/24 Range/Units 16:58 16:58 16:58 WBC 13.3 H (3.8-10.6) k/uL RBC 3.86 (3.80-5.40) m/uL Hgb 11.7 (11.4-16.0) gm/dL Hct 36.2 (34.0-46.0) % MCV 93.9 (80.0-100.0) fL MCH 30.4 (25.0-35.0) pg MCHC 32.3 (31.0-37.0) g/dL RDW 13.9 (11.5-15.5) % Plt Count 243 (150-450) k/uL MPV 9.5 Neutrophils % 73 % Lymphocytes % 14 % Monocytes % 8 % Eosinophils % 3 % Basophils % 1 % Neutrophils # 9.6 H (1.3-7.7) k/uL Lymphocytes # 1.8 (1.0-4.8) k/uL Monocytes # 1.1 H (0-1.0) k/uL Eosinophils # 0.4 (0-0.7) k/uL Basophils # 0.1 (0-0.2) k/uL Sodium 135 L (137-145) mmol/L Potassium 4.3 (3.5-5.1) mmol/L Chloride 102 (98-107) mmol/L Carbon Dioxide 28 (22-30) mmol/L Anion Gap 5 mmol/L BUN 28 H (7-17) mg/dL Creatinine 1.46 H (0.52-1.04) mg/dL Est GFR (CKD-EPI)AfAm 37 (>60 ml/min/1.73 sqM) Est GFR (CKD-EPI)NonAf 32 (>60 ml/min/1.73 sqM) Glucose 110 H (74-99) mg/dL Plasma Lactic Acid Rick 1.5 (0.7-2.0) mmol/L Calcium 9.0 (8.4-10.2) mg/dL Total Bilirubin 1.0 (0.2-1.3) mg/dL AST 24 (14-36) U/L ALT 11 (4-34) U/L Alkaline Phosphatase 67 (38-126) U/L Total Protein 6.4 (6.3-8.2) g/dL Albumin 3.7 (3.5-5.0) g/dL Lipase 55 (23-300) U/L Urine Color Urine Appearance (Clear) Urine pH (5.0-8.0) Ur Specific [place] (1.001-1.035) Urine Protein (Negative) Urine Glucose (UA) (Negative) Urine Ketones (Negative) Urine Blood (Negative) Urine Nitrite (Negative) Urine Bilirubin (Negative) Urine Urobilinogen (<2.0) mg/dL Ur Leukocyte Esterase (Negative) Urine RBC (0-5) /hpf Urine WBC (0-5) /hpf Ur Squamous Epith Cells (0-4) /hpf Urine Mucus (None) /hpf 01/02/24 Range/Units 19:42 WBC (3.8-10.6) k/uL RBC (3.80-5.40) m/uL Hgb (11.4-16.0) gm/dL Hct (34.0-46.0) % MCV (80.0-100.0) fL MCH (25.0-35.0) pg MCHC (31.0-37.0) g/dL RDW (11.5-15.5) % Plt Count (150-450) k/uL MPV Neutrophils % % Lymphocytes % % Monocytes % % Eosinophils % % Basophils % % Neutrophils # (1.3-7.7) k/uL Lymphocytes # (1.0-4.8) k/uL Monocytes # (0-1.0) k/uL Eosinophils # (0-0.7) k/uL Basophils # (0-0.2) k/uL Sodium (137-145) mmol/L Potassium (3.5-5.1) mmol/L Chloride (98-107) mmol/L Carbon Dioxide (22-30) mmol/L Anion Gap mmol/L BUN (7-17) mg/dL Creatinine (0.52-1.04) mg/dL Est GFR (CKD-EPI)AfAm (>60 ml/min/1.73 sqM) Est GFR (CKD-EPI)NonAf (>60 ml/min/1.73 sqM) Glucose (74-99) mg/dL Plasma Lactic Acid Rick (0.7-2.0) mmol/L Calcium (8.4-10.2) mg/dL Total Bilirubin (0.2-1.3) mg/dL AST (14-36) U/L ALT (4-34) U/L Alkaline Phosphatase (38-126) U/L Total Protein (6.3-8.2) g/dL Albumin (3.5-5.0) g/dL Lipase (23-300) U/L Urine Color Yellow Urine Appearance Clear (Clear) Urine pH 6.0 (5.0-8.0) Ur Specific [place] 1.019 (1.001-1.035) Urine Protein Negative (Negative) Urine Glucose (UA) Negative (Negative) Urine Ketones Negative (Negative) Urine Blood Moderate H (Negative) Urine Nitrite Negative (Negative) Urine Bilirubin Negative (Negative) Urine Urobilinogen <2.0 (<2.0) mg/dL Ur Leukocyte Esterase Negative (Negative) Urine RBC 15 H (0-5) /hpf Urine WBC 1 (0-5) /hpf Ur Squamous Epith Cells 1 (0-4) /hpf Urine Mucus Rare H (None) /hpf Disposition Clinical Impression: Abdominal pain, Diverticulitis large intestine, Hematuria Disposition: HOME SELF-CARE Condition: Stable Instructions (If sedation given, give patient instructions): Diverticulitis (ED), Hematuria (ED) Additional Instructions: Stop taking the Cipro. Take the Augmentin as directed. Follow-up with your doctor. Return should your pain not improve. Follow-up with the urologist for cystoscopy Prescriptions: Amoxic-Pot Clav 875-125Mg [Augmentin 875-125] 1 tab PO BID 10 Days #20 tab Is patient prescribed a controlled substance at d/c from ED?: No Referrals: Ariana Barr DO [Primary Care Provider] - 1-2 days Neo Sampson MD [STAFF PHYSICIAN] - 1-2 days Time of Disposition: 21:22
== END 2024-01-02 21:30 | disposition home or self-care (01) ==
LOC: EC 16:12
DX: K57.32 Diverticulitis of large intestine without perforation or abscess without bleeding (principal); K52.9 Noninfective gastroenteritis and colitis, unspecified; Z87.891 Personal history of nicotine dependence; Z88.1 Allergy status to other antibiotic agents; Z88.2 Allergy status to sulfonamides; Z88.5 Allergy status to narcotic agent; Z90.49 Acquired absence of other specified parts of digestive tract
CPT/HCPCS: 36415; 80053; 83605; 83690; 85025; 81001; 87040; 74177; 99284; 96374; 96361; J0696; Q9967

== ENCOUNTER → 2024-08-07 | Outpatient (CLI) | payer MEDICARE, BC ==
[2024-08-07 15:15] LABS: African American GFR (CKD) 38 (>60 ml/min/1.73 sqM); Blood Urea Nitrogen 29 mg/dL (7-17); Non-African American GFR(CKD) 33 (>60 ml/min/1.73 sqM)
--- NOTE | 2024-08-08 08:52 | CT ---
EXAMINATION TYPE: CT chest wo con CT DLP: 542 mGycm, Automated exposure control for dose reduction was used. DATE OF EXAM: 08/07/2024 4:37 PM COMPARISON: CT chest 10/05/1933, 06/06/2023, 04/04/2016, PET/CT 07/06/2023, CT abdomen and pelvis 2023 CLINICAL INDICATION:Female, 88 years old with history of R91.8 OTHER NONSPECIFIC ABNORMAL FINDING OF LUNG F; PHH, abnormal lung findings TECHNIQUE: Multiple axial images were obtained through the chest without IV contrast. Lack of IV or o ral contrast limits evaluation of solid and hollow organ viscera. . Coronal and sagittal reformats re viewed. FINDINGS: LUNGS/ PLEURA: No pleural effusion, pneumothorax, focal consolidation. Minimal right lower lobe subse gmental dependent atelectasis. Enlarging peripheral left upper lobe 2.2 cm solid pulmonary nodule, pr eviously measured 1.1 cm (series 4, image 19). Stable posterior left upper lobe 1.1 cm solid pulmonar y nodule when measuring with similar technique (series 4, image 20). Stable lingular 4 mm subpleural pulmonary nodule (series 4, image 30). More solid-appearing opacity within the posterior aspect of th e right lower lobe measuring up to 1.3 cm (series 4, image 24). Stable right midlung solid 7 mm pulmo nary nodule (series 4, image 27). Increased size of anterior right middle lobe 4 mm pulmonary nodule, previously measured 3 mm (series 4, image 34). Stable right lung base 4 mm pulmonary nodule (series 4, image 24). No new pulmonary nodules are evident. AIRWAY: Patent and unremarkable.. HEART: Size within normal limits.No pericardial effusion. Small aortic valvular and coronary artery c alcifications. MEDIASTINUM: No gross evidence of adenopathy. VASCULATURE: No aortic aneurysm. Mild diffuse chronic calcification of the aorta and its branches. MUSCULOSKELETAL: No acute osseous abnormalities no aggressive osseous lesion. Right shoulder arthropa thy. Multilevel degenerative disc disease. SOFT TISSUES/LYMPH NODES: Unremarkable. LOWER NECK: No significant findings. UPPER ABDOMEN: Increasing size of hypodense 1.5 cm lesion within the right hepatic lobe, previously m easured 1.[address] 01/02/2024. Postcholecystectomy changes. Stable extrahepatic biliary ductal dilat ation related to cholecystectomy. Small hiatal hernia. IMPRESSION: 1. Several pulmonary nodules are redemonstrated with a few demonstrating increased size. Most worriso me is within the anterior left upper lobe measuring up to 2.2 cm, previously measured 1.1 cm. Additio nal more solid appearing nodule within the posterior right lower lobe now measures 1.3 cm. Raises pos sibility of metastasis/malignancy. Further evaluation with PET/CT is recommended. 2. Enlarging indeterminate hypodense right hepatic lobe 2.5 cm, previously measured 1.3 cm. Further e valuation with MR abdomen with IV contrast (liver mass protocol) recommended. [facility], , 08/08/2024 8:49 AM
== END | disposition home or self-care (01) ==
LOC: RADCTMAIN 14:32
PROVIDERS: ATTEND Family Medicine
DX: R91.8 Other nonspecific abnormal finding of lung field (principal); R16.0 Hepatomegaly, not elsewhere classified
CPT/HCPCS: 36415; 71250; 82565; 84520

== ENCOUNTER → 2024-09-19 | Outpatient (CLI) | payer MEDICARE, BC ==
--- NOTE | 2024-09-21 16:01 | PE ---
EXAMINATION TYPE: PET CT fusion skull to thigh DATE OF EXAM: 09/19/2024 CLINICAL INDICATION:Female, 88 years old with history of R91.8 pulmonary nodules; TECHNIQUE: Following the intravenous administration of 9.73 mCi of F-18 FDG, whole body images are performed from the skull base to the midthigh. Images are reviewed on the computer in the coronal, a xial, and sagittal planes. Reconstructed rotating images are created on independent workstation and reviewed on the computer. A non-contrast CT is performed in conjunction with the PET scan. Glucose level 112 mg/dL CT DLP: 903.9 mGycm, Automated exposure control for dose reduction was used. COMPARISON: CT 08/07/2024, 01/02/2024, 10/06/2023, 06/06/2023, 04/13/2023, PET/CT 07/06/2023, MRI: None FINDINGS: Mediastinal SUV mean is 2.7. Hepatic parenchyma SUV mean is 3.3. SKULL BASE AND NECK: No suspicious radiotracer activity. CHEST, MEDIASTINUM, AND HILAR REGION: Stable peripheral left upper lobe 2.3 cm nodule with a maximum SUV of 2.2. Previously 1.5. Previously measured 1 cm on prior PET/CT. Stable posterior left upper lobe 1.1 cm nodule with a maximum SUV of 1.2. Previously 1.4. Previously measured 0.9 cm in prior PET/CT. Stable posterior right lower lobe superior segment 1.3 cm opacity with a maximum SUV of 2.5. Previous ly 2.0. Previously measured 1.3 cm in prior PET/CT. Other previously seen pulmonary nodules are subcentimeter and below the threshold for PET CT. Right hilar lymph node redemonstrated with a maximum SUV of 5.0, previously 4.8. Left hilum lymph node with a maximum SUV of 6, previously 5.5. Right low paratracheal lymph node with internal calcification. Demonstrates a maximum SUV of 5.7, pre viously 5.5. ABDOMEN AND PELVIS: There is focal radiotracer uptake identified within the anal region again with a max SUV of 16.7, pre viously 12.2. MUSCULOSKELETAL STRUCTURES: Mild increased uptake within both shoulder joints suggesting inflammatory degenerative changes. Focal uptake identified within the right ischio tuberosity suggesting inflammatory changes. OTHER CT: Bilateral aphakia with a left scleral buckle. Atherosclerotic calcification of the intracra nial vasculature. Minimal bilateral carotid bulb calcifications. Atrophic thyroid gland. Mild left at herosclerotic calcification of the aorta and its branches. Mild cardiomegaly. Aortic valvular calcifi cations. Small coronary artery calcifications. Bilateral shoulder arthropathy. Gallbladder is surgica lly absent. Post hysterectomy changes. Scattered colonic diverticulosis without evidence for acute di verticulitis. Diffuse bone demineralization. Degenerative changes of the pubic symphysis. Multilevel degenerative changes of the spine. Surgical changes to the right colon. IMPRESSION: 1. Redemonstration of a few scattered pulmonary nodules which demonstrate FDG activity at background levels. The left peripheral upper lobe nodule has increased in size from prior PET CT when it measur ed 1 cm. Now measures up to 2.3 cm. Cannot exclude low metabolic malignancy such as adenocarcinoma. C onsidered tissue sampling versus follow-up. 2. Stable mildly FDG avid bilateral hilar and right low paratracheal lymph nodes from prior PET/CT. These are indeterminate. 3. Redemonstration of focal radiotracer uptake within the anal region. Direct visualization is recom mended to exclude underlying neoplasm. [facility], , 09/21/2024 3:59 PM
== END | disposition home or self-care (01) ==
LOC: RADPETMAIN 15:13
PROVIDERS: ATTEND Family Medicine
DX: R91.8 Other nonspecific abnormal finding of lung field (principal); K57.30 Diverticulosis of large intestine without perforation or abscess without bleeding
CPT/HCPCS: 78815; A9552